=== PATIENT | male | born 1955 | race Caucasian/White ===

== ENCOUNTER 2024-06-05 12:54 | Inpatient (IN) | payer MEDICARE, OTHER, SELFPAY ==
[2024-06-05] VITALS (8 sets, daily range): BP systolic 98–122; BP diastolic 67–95; PULSE 112–136; RESP 16–20; TEMP 36.5–36.8; O2SAT 92–98; BMI 32.8
--- NOTE | 2024-06-05 12:56 | XRR_ITS ---
PROCEDURE INFORMATION: Exam: XR Chest Exam date and time: 06/05/2024 1:16 PM Age: 68 years old Clinical indication: Shortness of breath; Additional info: SOB TECHNIQUE: Imaging protocol: Radiologic exam of the chest. Views: 1 view. COMPARISON: No relevant prior studies available. FINDINGS: Lungs: Unremarkable. No consolidation. Pleural spaces: Unremarkable. No pleural effusion. No pneumothorax. Heart/Mediastinum: Mild cardiomegaly. Mild relative elevation of the left hemidiaphragm. Bones/joints: Unremarkable. XR/XR chest 1V portable [id number] IMPRESSION: Mild cardiomegaly.
--- NOTE | 2024-06-05 13:14 | ECG_ITS ---
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 Measurements Intervals [place] Rate: 130 P: 0 [place]: 0 QRS: 33 QRSD: 89 T: 61 QT: 312 QTc: 460 Interpretive Statements ATRIAL FIBRILLATION WITH RAPID VENTRICULAR RESPONSE No previous ECG available for comparison Electronically Signed On 06-09-2024 18:28:15 CDT by Hammad Martinez M.D. [id number]
--- NOTE | 2024-06-05 13:28 | W.ED.SOB ---
HPI - SOB/Dyspnea General: Chief Complaint: Shortness of Breath/Dyspnea Stated Complaint: Guzmán Juniata sent, fluid build up, A Fib Time Seen by Provider: 06/05/24 13:17 Source: patient Mode of arrival: ambulatory Limitations: no limitations History of Present Illness: HPI Narrative: 68-year-old male has a history of congestive heart failure also has a history of A-fib states he had recently moved here states he been having increasing swelling in his lower extremities along with some exertional dyspnea. He is having no dyspnea at rest he denies any chest pain he does take Lasix at home he also has a history of A-fib states is been taking his meds he is in A-fib with RVR here. Associated symptoms: Reports palpitations; Deny abdominal pain, chest pain, fever(s), nausea or vomiting Related Data Home Medications ?Medication ?Instructions ?Recorded ?Confirmed amoxicillin 500 mg-potassium 1 tab PO BID 06/05/24 06/05/24 clavulanate 125 mg tablet (Augmentin) apixaban 5 mg tablet (Eliquis) 5 mg PO BID 06/05/24 06/05/24 atorvastatin 40 mg tablet 40 mg PO DAILY 06/05/24 06/05/24 furosemide 40 mg tablet 40 mg PO BID 06/05/24 06/05/24 lisinopril 20 mg tablet 20 mg PO DAILY 06/05/24 06/05/24 metoprolol succinate 200 mg 200 mg PO DAILY 06/05/24 06/05/24 tablet,extended release 24 hr sildenafil 100 mg tablet 100 mg PO DAILY 06/05/24 06/05/24 tirzepatide 12.5 mg/0.5 mL 12.5 mg SUBCUT Q7D 06/05/24 06/05/24 subcutaneous pen injector (Mounjaro) Allergies Allergy/AdvReac Type Severity Reaction Status Date / Time No Known Allergies Allergy Verified 06/05/24 13:14 Review of Systems Const: Denies: fever(s), chills, body aches or change in appetite ENMT: Denies: throat pain or dental pain Card: Reports: palpitations and irregular heart rhythm; Denies: chest pain Resp: Reports: dyspnea GI: Denies: abdominal pain, nausea, vomiting or diarrhea Musc: Reports: extremity swelling; Denies: neck pain or back pain Skin/Breast: Denies: rash Neuro: Denies: headache(s) Physical Exam Const: COMMON NORMALS: patient oriented x3 HENMT: COMMON NORMALS: normocephalic and atraumatic HEAD & SCALP: normocephalic and atraumatic Eye: COMMON NORMALS: conjunctivae normal CONJUNCTIVA: Yes conjunctivae normal Neck/C-Spine: COMMON NORMALS: full ROM and supple Chest: COMMONS NORMALS: normal inspection of the chest Resp: COMMON NORMALS: normal respiratory effort, No retractions, No use of accessory muscles and clear to auscultation bilaterally AUSCULTATION: clear to auscultation bilaterally Cardio: COMMON NORMALS: No murmurs present (Cardio) RATE: tachycardic RHYTHM: abnormal rhythm irregularly irregular GI: COMMON NORMALS: Normal to inspection, nondistended, normoactive bowel sounds present, Soft to palpation, non-tender and no masses PALPATION: Yes Soft to palpation Extremity: COMMON NORMALS: full ROM NARRATIVE EXTREMITY EXAM: 2+ edema Neuro: COMMON NORMALS: patient oriented x3, moves all extremities and no focal motor deficits Psych: COMMON NORMALS: mental status grossly normal, Normal thought process present and cooperative THOUGHT PROCESS: Normal thought process present Skin: COMMON NORMALS: no rashes or lesions noted and no wounds GENERAL SKIN EXAM: no rashes or lesions noted Course Vital Signs: Vital signs: Vital Signs Temperature 97.7 F 06/05/24 13:07 Pulse Rate 131 H 06/05/24 14:39 Respiratory Rate 16 06/05/24 14:39 Blood Pressure 111/67 06/05/24 14:39 Pulse Oximetry 98 06/05/24 14:39 Oxygen Delivery Me thod Room Air 06/05/24 14:39 MDM - SOB/Dyspnea Medical Decision Making Patient presents here with lower extreme edema likely from his CHF he has no respiratory distress he is in A-fib with RVR here have started him on amiodarone spoke to the hospitalist will admit at this time. Medical Records I reviewed the patient's medical records. Lab Data I reviewed the patient's lab results. 06/05/24 13:26 06/05/24 13:26 Labs/Radiology: Radiology Impressions Chest X-Ray 06/05/24 12:56 IMPRESSION: Mild cardiomegaly. Laboratory Results WBC 6.71 10^3/uL (3.29-11.43) 06/05/24 13:26 RBC 5.48 10^6/uL (3.85-5.65) 06/05/24 13:26 Hgb 11.50 g/dL (11.27-16.99) 06/05/24 13:26 Hct 37.9 % (37-53) 06/05/24 13:26 MCV 69.2 fl (82-101) L 06/05/24 13:26 MCH 21.0 pg (27-33) L 06/05/24 13:26 MCHC 30.3 g/dL (30-55) 06/05/24 13:26 RDW 20.2 % (12.1-15.1) H 06/05/24 13:26 Plt Count 263 10^3/cmm (157-399) 06/05/24 13:26 MPV 9.7 fL (7.4-10.4) 06/05/24 13:26 Neut % (Auto) 70.5 % 06/05/24 13:26 Lymph % (Auto) 18.3 % 06/05/24 13:26 Shackelford % (Auto) 9.4 % 06/05/24 13:26 Eos % (Auto) 1.0 % 06/05/24 13:26 Baso % (Auto) 0.4 % 06/05/24 13:26 Neut # (Auto) 4.72 10^3/uL (1.8-7.7) 06/05/24 13:26 Lymph # (Auto) 1.2 10^3/uL (0.8-4.8) 06/05/24 13:26 Shackelford # (Auto) 0.6 10^3/uL (0.2-0.9) 06/05/24 13:26 Eos # (Auto) 0.1 10^3/uL (0.0-0.8) 06/05/24 13:26 Baso # (Auto) 0.0 10^3/uL (0.0-0.1) 06/05/24 13:26 Nucleated RBC % (auto) 0 % 06/05/24 13:26 Nucleated RBCs # 0.0 /100WBC 06/05/24 13:26 Sodium 137 mmol/L (136-145) 06/05/24 13:26 Potassium 4.0 mmol/L (3.5-5.1) 06/05/24 13:26 Chloride 100 mmol/L (98-107) 06/05/24 13:26 Carbon Dioxide 27 mmol/L (22-29) 06/05/24 13:26 Anion Gap 14.0 (5-19) 06/05/24 13:26 BUN 30 mg/dL (8-23) H 06/05/24 13:26 Creatinine 1.6 mg/dL (0.7-1.2) H 06/05/24 13:26 GFR Calculation 42.9 mL/min (90-130) L 06/05/24 13:26 Glucose 92 mg/dL (65-115) 06/05/24 13:26 Calculated Osmolality 290 mOsm/kg (285-295) 06/05/24 13:26 Calcium 8.8 mg/dL (8.5-10.5) 06/05/24 13:26 Total Bilirubin 2.0 mg/dL (0.15-1.2) H 06/05/24 13:26 AST 63 U/L (0-40) H 06/05/24 13:26 ALT 48 U/L (0-41) H 06/05/24 13:26 Alkaline Phosphatase 168 U/L (40-130) H 06/05/24 13:26 NT-Pro-B Natriuret Pep 5504 pg/mL (0-125) H 06/05/24 13:26 Total Protein 7.1 g/dL (6.6-8.7) 06/05/24 13:26 Albumin 3.8 g/dL (3.5-5.2) 06/05/24 13:26 Globulin 3.3 g/dL (1.3-4.6) 06/05/24 13:26 All radiology interpretation(s) finalized by discharge EKG Data EKG 1: I personally reviewed and interpreted this EKG as follows: EKG Interpretation Date: 06/05/24 EKG interpretation time: 13:14 Interpretation: afib rvr hr [address] elevtion qrs 89 qtc 389 Discharge Plan Discharge Patient Disposition: Admitted As Inpatient Clinical Impression: Congestive heart failure, Atrial fibrillation with RVR Condition: Stable Prescriptions: No Action furosemide 40 mg Tablet 40 mg PO BID atorvastatin 40 mg Tablet 40 mg PO DAILY metoprolol succinate 200 mg Tablet Extended Release 24 Hr 200 mg PO DAILY lisinopril 20 mg Tablet 20 mg PO DAILY sildenafil 100 mg Tablet 100 mg PO DAILY Eliquis 5 mg Tablet 5 mg PO BID Mounjaro 12.5 mg/0.5 mL Pen Injector 12.5 mg SUBCUT Q7D amoxicillin-pot clavulanate [Augmentin] 500-125 mg Tablet 1 tab PO BID Print Language: Ukrainian Coding Level of Care Code ED 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
[2024-06-05 13:36] LABS: Basophils % 0.4 %; Eosinophils # 0.1 10^3/uL (0.0-0.8); Hematocrit 37.9 % (37-53); Lymphocytes # 1.2 10^3/uL (0.8-4.8); Lymphocytes % 18.3 %; Mean Corpuscular HGB Conc 30.3 g/dL (30-55); Mean Corpuscular Volume 69.2 fl (82-101); Mean Platelet Volume 9.7 fL (7.4-10.4); Monocytes # 0.6 10^3/uL (0.2-0.9); Monocytes % 9.4 %; Neutrophils # 4.72 10^3/uL (1.8-7.7); Neutrophils % 70.5 %; Nucleated Red Blood Cells % 0 %; Platelet Count 263 10^3/cmm (157-399); Red Blood Count 5.48 10^6/uL (3.85-5.65); Red Cell Distribution Width 20.2 % (12.1-15.1); White Blood Count 6.71 10^3/uL (3.29-11.43)
[2024-06-05 14:06] LABS: Alanine Aminotransferase 48 U/L (0-41); Albumin Level 3.8 g/dL (3.5-5.2); Alkaline Phosphatase 168 U/L (40-130); Aspartate Amino Transferase 63 U/L (0-40); Blood Urea Nitrogen 30 mg/dL (8-23); Calcium 8.8 mg/dL (8.5-10.5); Carbon Dioxide 27 mmol/L (22-29); Chloride 100 mmol/L (98-107); Creatinine Clr Calc Pharmacy 54.9716; Globulin 3.3 g/dL (1.3-4.6); Glomerular Filtration Rate 42.9 mL/min (90-130); Glucose 92 mg/dL (65-115); NT Pro B Type Natriuretic Pept 5504 pg/mL (0-125); Osmolality Calculated 290 mOsm/kg (285-295); Sodium 137 mmol/L (136-145); Total Protein 7.1 g/dL (6.6-8.7)
[2024-06-05] MEDS: FUROsemide 10 mg/mL SDV 4mL 40 MG IVP ×2 (14:08→20:36)
[2024-06-05] MEDS: amiodarone 150 MG/100 ML PREMIX 400 MG IV (14:08)
--- NOTE | 2024-06-05 15:11 | USR_ITS ---
PROCEDURE INFORMATION: Exam: US Abdomen, Limited; Right Upper Quadrant Exam date and time: 06/05/2024 7:26 PM Age: 68 years old Clinical indication: Abnormal findings; Abnormal lab test; Elevated liver enzymes; Prior surgery; Surgery date: 6+ months; Surgery type: Cholecystectomy; Additional info: Transamintis TECHNIQUE: Imaging protocol: Real time ultrasound of the abdomen with image documentation. Limited exam focused on the right upper quadrant. COMPARISON: No relevant prior studies available. FINDINGS: Liver: Mild hepatomegaly. Gallbladder: Surgically absent. Biliary ducts: No stones. No ductal dilatation. Pancreas: Unremarkable as visualized. Right kidney: No mass. No definite stones. No hydronephrosis. US/US liver [id number] IMPRESSION: Mild hepatomegaly.
--- NOTE | 2024-06-05 15:19 | P.HP_ITS ---
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 Patient tells me that he is originally from [facility] [place], he has been a lot of stress recently, he just sold his house in [place] [facility] [place], and it is under contract, but they are having issues, [place], so he he has to be to mortgages, him and his have moved here, he tells me that recently has been experiencing increased shortness of breath, increased shortness of breath with exertion, increased lower extreme edema, chest palpitations, no chest pain, he was diagnosed with a respiratory tract infection and placed on Augmentin, denies alcoholism, denies any drug use Review of Systems 2 Const: Denies: fever(s) or chills Card: Reports: palpitations; Denies: chest pain Resp: Reports: dyspnea GI: Denies: abdominal pain Medications/Allergies Home Medications ?Medication ?Instructions ?Recorded ?Confirmed ?Last Taken ?Type amoxicillin 500 mg-potassium 1 tab PO BID 06/05/2403/3106/05/24 History clavulanate 125 mg tablet (Augmentin) apixaban 5 mg tablet (Eliquis) 5 mg PO BID 06/05/2406/05/24 History atorvastatin 40 mg tablet 40 mg PO DAILY 06/05/2403/3106/05/24 History furosemide 40 mg tablet 40 mg PO BID 06/05/2406/05/24 History lisinopril 20 mg tablet 20 mg PO DAILY 06/05/2403/3106/05/24 History metoprolol succinate 200 mg 200 mg PO DAILY 06/05/24 0 06/05/24 06/05/24 History tablet,extended release 24 hr sildenafil 100 mg tablet 100 mg PO DAILY 06/05/2403/31 Unknown History tirzepatide 12.5 mg/0.5 mL 12.5 mg SUBCUT Q7D 06/05/24 06/05/24 Unknown History subcutaneous pen injector (Nga) Allergies Allergy/AdvReac Type Severity Reaction Status Date / Time No Known Allergies Allergy Verified 06/05/24 13:14 PFSH Acute 2 PFSH: Medical History (Updated 06/05/24 @ 15:44 by Abdiel Bishop MD) History of cardioversion History of CAD (coronary artery disease) History of atrial fibrillation Surgical History (Updated 06/05/24 @ 15:42 by Abdiel Bishop MD) History of heart artery stent History of cholecystectomy Family History (Updated 06/05/24 @ 15:43 by Abdiel Bishop MD) Mother CAD (coronary artery disease) Father CAD (coronary artery disease) Social History (Updated 06/05/24 @ 15:43 by Abdiel Bishop MD) Smoking and tobacco/nicotine status: never used tobacco/nicotine Alcohol intake: never Substance/Drug Use: never Vitals/I&O/Wt Last Vital Signs Temp 97.7 F 06/05/24 13:07 Pulse 115 H 06/05/24 15:18 Resp 16 06/05/24 15:18 BP 111/67 06/05/24 15:18 Pulse Ox 96 06/05/24 15:18 O2 Del Method Room Air 06/05/24 15:00 06/05/24 06/05/24 06/05/24 06:59 14:59 22:59 Intake Total 100 / 100 Balance 100 / 100 Weight last 48 hrs Weight 109.769 kg Physical Exam 2 Const: COMMON NORMALS: no acute distress and patient oriented x3 HENMT: COMMON NORMALS: normocephalic HEAD & SCALP: normocephalic Eye: COMMON NORMALS: Equal, round and reactive pupils present Neck/C-Spine: COMMON NORMALS: no JVD Resp: COMMON NORMALS: normal respiratory effort, No retractions, No use of accessory muscles and clear to auscultation bilaterally AUSCULTATION: c rackles and wheezes Cardio: COMMON NORMALS: no JVD, regular rate, regular rhythm, S1 normal heart sound present and S2 normal heart sound present RATE: regular rate RHYTHM: regular rhythm HEART SOUNDS: S1 normal heart sound present and S2 normal heart sound present GI: COMMON NORMALS: Normal to inspection, nondistended, normoactive bowel sounds present, Soft to palpation and non-tender : COMMON NORMALS: Yes no CVA tenderness Extremity: OTHER: 2+ edema Neuro: COMMON NORMALS: patient oriented x3, CN's II-XII intact bilaterally and moves all extremities Psych: COMMON NORMALS: mental status grossly normal Data 06/05/24 13:26 06/05/24 13:26 A&P Assessment and plan (1) Atrial fibrillation with RVR: (2) Acute exacerbation of CHF (congestive heart failure): (3) Transaminitis: (4) Acute kidney injury: Plan Acute systolic and diastolic CHF exacerbation Plan -Cardiac echo -Has received 40 mg of IV Lasix in the emergency room, add metolazone 5 mg daily -Lasix 40 IV twice daily -Monitor creatinine, monitor urine output, monitor potassium -Magnesium level, TSH -Monitor respiratory status closely Atrial fibrillation with rapid ventricular response -Continue home metoprolol -Continue amiodarone drip Transaminitis -With elevated bilirubin, alk phos -Alcohol level, acute hep panel, liver ultrasound Prediabetes, A1c Acute kidney injury, creatinine 1.6, baseline creatinine unknown, possibly cardiorenal syndrome monitor creatinine and urine output given diuresis Full code Eliquis for DVT prophylaxis PDMP PDMP Reviewed: Not Reviewed Attestations 2 Medical Necessity Statement*: Patient requires hospitalization, inpatient, greater than 2 midnights for acute systolic diastolic CHF exacerbation, atrial fibrillation with rapid ventricular response, transaminitis Diagnoses Atrial fibrillation with RVR I48.91 Acute exacerbation of CHF (congestive heart failure) I50.9 Transaminitis R74.01 Acute kidney injury N17.9
--- NOTE | 2024-06-05 15:43 | PC.NURSE ---
Patient transferred from ED to CSU via bed with amio drip running at 1mg/min at 1532.
[2024-06-05 15:46] LABS: Troponin 5 2HR 26.31 ng/L (0-15)
--- NOTE | 2024-06-05 16:01 | ECG_ITS ---
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 Measurements Intervals [place] Rate: 131 P: 0 [place]: 0 QRS: 52 QRSD: 88 T: 29 QT: 333 QTc: 492 Interpretive Statements ATRIAL FIBRILLATION WITH RAPID VENTRICULAR RESPONSE NONSPECIFIC T-WAVE ABNORMALITY ABNORMAL RHYTHM ECG Compared to ECG 06/05/2024 13:14:14 T-wave abnormality now present Electronically Signed On 06-09-2024 18:27:10 CDT by Hammad Martinez M.D. [id number]
[2024-06-05 16:06] LABS: Thyroid Stimulating Hormone 1.97 uIU/mL (0.27-4.20)
[2024-06-05 16:17] LABS: Estmated Average Glucose 134; Hemoglobin A1C 6.3 % (4.0-6.0)
[2024-06-05 16:25] LABS: Amphetamines Screen Urine Negative (Negative); Bacteria Urine None Seen /hpf; Barbiturates Screen Urine Negative (Negative); Benzodiazepines Screen Urine Negative (Negative); Cocaine Screen Urine Negative (Negative); Hyaline Casts Urine 27.69 /lpf; Opiate Screen Urine Negative (Negative); PCP Screen Urine Negative (Negative); RBC Urine 0-2 /hpf (0-2); THC Screen Urine Negative (Negative); WBC Urine 0-5 /hpf (0-5)
[2024-06-05 16:29] LABS: Troponin(5th) Baseline 30 ng/L (0-15)
[2024-06-05 16:31] LABS: Troponin 5 2HR Delta -3.69 ABS# (0-10)
[2024-06-05] MEDS: metOLazone 5 MG Tablet PO (16:43)
[2024-06-05] MEDS: pantoprazole 40 mg SDV IVP (16:43)
[2024-06-05 16:59] LABS: C Reactive Protein 22.7 mg/L (0.0-4.9); Chol HDL Ratio 3.33 mg/dL (1.0-5.00); Cholesterol 80 mg/dL (0-200); Gamma Glutamyl Transferase 152 U/L (8-61); HDL Cholesterol 24 mg/dL (60-100); LDL Cholesterol Calculated 41 mg/dL (50-129); LDL HDL Ratio 1.71 RATIO (0.00-3.22); Lipase 48 U/L (13-60); Magnesium 2.4 mg/dL (1.7-2.3); Procalcitonin 0.11 ng/mL (0-0.5); Triglycerides 74 mg/dL (0-150)
[2024-06-05 17:00] LABS: Alcohol Level < 10 mg/dL (0-10)
[2024-06-05 17:07] LABS: Add Urine Microscopic? YES; Bilirubin Urine Neg (Negative); Blood Urine Trace (Negative); Glucose Urine UA Norm (Normal); Ketones Urine Negative (Negative); Leukocyte Esterase Urine Negative (Negative); Nitrate Urine Negative (Negative); Protein Urine 1+ (Negative); Specific Gravity, Urine 1.015 (1.005-1.030); UA Slide Review UA Slide Review Perf; Urine Appearance Clear (CLEAR); Urine Color Yellow (Yellow); Urobilinogen Urine 1 mg/dL (Negative); pH Urine 5 (5-7)
[2024-06-05 17:10] LABS: Hepatitis A Antibody IgM Non-Reactive (Nonreactive); Hepatitis B Core IgM Non-Reactive (Nonreactive); Hepatitis B Surface Antigen Non-Reactive (Nonreactive); Hepatitis C Virus Antibody Non-Reactive (Nonreactive)
[2024-06-05] MEDS: amoxicillin-clav 500-125 mg Tablet 1 TAB PO (17:19)
[2024-06-05] MEDS: apixaban 5 mg Tablet PO (17:20)
[2024-06-05 20:15] LABS: Troponin 5 6HR 27.37 ng/L (0-15)
[2024-06-05 20:20] LABS: Troponin 5 6HR Delta -2.63 ng/L (0-12)
--- NOTE | 2024-06-05 21:12 | ECG_ITS ---
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: : 1955 Requested By: Abdiel Bishop Order Number: [id number] Reading MD: GALILEO MORA Measurements Intervals [place] Rate: 137 P: 0 [place]: 0 QRS: 70 QRSD: 92 T: 40 QT: 313 QTc: 473 Interpretive Statements ATRIAL FIBRILLATION WITH RAPID VENTRICULAR RESPONSE INCOMPLETE RIGHT BUNDLE BRANCH BLOCK [90+ ms QRS DURATION, TERMINAL R IN V1/V2, 40+ ms S IN I/aVL/V4/V5/V6] ABNORMAL RHYTHM ECG Compared to ECG 06/05/2024 16:01:58 Incomplete right bundle-branch block now present T-wave abnormality no longer present Electronically Signed On 06-10-2024 21:52:56 CDT by GALILEO MORA [id number]
[2024-06-05] MEDS: trazodone 50 mg Tablet PO (23:25)
[2024-06-05] MEDS: acetaminophen 325 mg Tablet 650 MG PO (23:26)
[2024-06-06 04:00] VITALS: BP 117/68; PULSE 131; RESP 19; TEMP 36.8; O2SAT 98
[2024-06-06 04:09] LABS: Basophils % 0.4 %; Eosinophils # 0.1 10^3/uL (0.0-0.8); Eosinophils % 2.3 %; Hematocrit 34.3 % (37-53); Lymphocytes # 1.1 10^3/uL (0.8-4.8); Lymphocytes % 21.7 %; Mean Corpuscular HGB Conc 30.6 g/dL (30-55); Mean Corpuscular Hemoglobin 20.9 pg (27-33); Mean Corpuscular Volume 68.3 fl (82-101); Mean Platelet Volume 10.2 fL (7.4-10.4); Monocytes # 0.5 10^3/uL (0.2-0.9); Monocytes % 8.9 %; Neutrophils % 66.1 %; Nucleated Red Blood Cells % 0 %; Platelet Count 229 10^3/cmm (157-399); Red Blood Count 5.02 10^6/uL (3.85-5.65); Red Cell Distribution Width 19.9 % (12.1-15.1); White Blood Count 5.15 10^3/uL (3.29-11.43)
[2024-06-06 04:44] LABS: Alanine Aminotransferase 40 U/L (0-41); Albumin Level 3.4 g/dL (3.5-5.2); Alkaline Phosphatase 155 U/L (40-130); Anion Gap 14.7 (5-19); Aspartate Amino Transferase 52 U/L (0-40); Blood Urea Nitrogen 30 mg/dL (8-23); Calcium 8.6 mg/dL (8.5-10.5); Carbon Dioxide 27 mmol/L (22-29); Chloride 99 mmol/L (98-107); Creatinine Clr Calc Pharmacy 56.9562; Globulin 2.9 g/dL (1.3-4.6); Glomerular Filtration Rate 42.9 mL/min (90-130); Glucose 100 mg/dL (65-115); Magnesium 2.2 mg/dL (1.7-2.3); Osmolality Calculated 290 mOsm/kg (285-295); Potassium 3.7 mmol/L (3.5-5.1); Sodium 137 mmol/L (136-145); Total Bilirubin 1.6 mg/dL (0.15-1.2); Total Protein 6.3 g/dL (6.6-8.7)
[2024-06-06 04:45] LABS: NT Pro B Type Natriuretic Pept 4997 pg/mL (0-125)
[2024-06-06 08:00] VITALS: BP 111/87; PULSE 123; RESP 20; TEMP 36.7; O2SAT 95
[2024-06-06] MEDS: atorvastatin 40 mg Tablet PO (08:57)
[2024-06-06] MEDS: apixaban 5 mg Tablet PO ×2 (08:57→17:26)
[2024-06-06] MEDS: FUROsemide 10 mg/mL SDV 4mL 40 MG IVP ×2 (08:57→20:20)
[2024-06-06] MEDS: metoprolol succinate ER (24 HR) 100 mg Tablet 200 MG PO (08:57)
[2024-06-06] MEDS: amoxicillin-clav 500-125 mg Tablet 1 TAB PO ×2 (08:58→17:26)
--- NOTE | 2024-06-06 10:04 | PC.NURSE ---
Provider ordered nursing to run a amiodarone bolus 150mg now. Order entered.
[2024-06-06] MEDS: amiodarone 150 MG/100 ML PREMIX 400 MG IV (10:10)
[2024-06-06 10:35] VITALS: BP 107/73; PULSE 120
[2024-06-06] MEDS: ALPRAZolam 0.5 mg Tablet 0.25 MG PO ×2 (11:05→20:20)
[2024-06-06] MEDS: fluoxetine 10 mg Capsule 20 MG PO (11:06)
[2024-06-06 11:25] VITALS: BP 117/79; PULSE 115; RESP 20; TEMP 36.9; O2SAT 97
--- NOTE | 2024-06-06 11:27 | P.CONIM_ITS ---
<Statement entered by Hammad Martinez M.D - 06/07/24 12:50> Patient was evaluated and cared for in conjunction with an advanced practice practitioner.? I personally examined the patient and reviewed the chart and all pertinent data including imaging, telemetry, and laboratory results.? I discussed the patient in detail with the advanced practice practitioner.? Please see? their note for complete H&P, testing results and agreed upon plan of care for the patient. Patient's heart rate is still uncontrolled. Continue metoprolol and amiodarone. If heart rate does not improve in 1 to 2 days, will consider cardioversion. GENERAL: Patient is alert, awake and oriented x3. HEART Irregularly irregular, tachycardia LUNGS: Diminished air entry bilaterally CENTRAL NERVOUS SYSTEM: Grossly nonfocal. EXTREMITIES: Lower extremities with out edema bilaterally. Providers/Reason For Consult 2 Consulting Physician/Specialty*: Dr. Martinez Reason for Consult*: Afib RVR Requesting Physician: Dr. 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 He recently moved in this area. He presented to [facility] ER for what he states is lower extremity edema. He denied any palpitations at that time. Denied any dizziness shortness of breath or chest pain. On my exam he does have quite a bit of wheezing. He states he was diagnosed with a respiratory tract infection and placed on Augmentin recently. He also has acute kidney injury with creatinine of 1.6. He states he is not aware of any kidney dysfunction that he knows of. Troponins were slightly elevated at 30?26.31?27.37 with delta negative. EKG shows A-fib with RVR. Rates are currently anywhere from 120s to upper 130s. He is asymptomatic at this time. Echo has been ordered but not done. Currently he is on amiodarone drip as well as metoprolol 200 mg daily and Eliquis 5 twice daily for stroke prevention as well as Lasix 40 every 12. Review of Systems 2 Narrative: Consitutional: denies fever, chills, body aches, or changes in appetite, denies abnormal weight loss Eyes: Denies changes in vision Card: Denies chest pain, palpitations, irregular heart rhythm, reports edema, denies syncope, shortness of breath, orthopnea, leg pain with exertion Resp: Denies shortness of breath, denies hemoptysis, denies cough GI: denies abdominal pain, denies nausea or voimting, denies blood in stool : denies blood in urine, denies dysuria Musc: Denies extremity pain, denies limited range of motion or recent injury Skin: Reports swelling bilateral lower extremities Neuro: Denies nubmness in extremities, h/a, s/s of stroke Maksim: Denies easy bruiding/bleeding Medications/Allergies Home Medications ?Medication ?Instructions ?Recorded ?Confirmed ?Last Taken ?Type amoxicillin 500 mg-potassium 1 tab PO BID 06/05/2403/3106/05/24 History clavulanate 125 mg tablet (Augmentin) apixaban 5 mg tablet (Eliquis) 5 mg PO BID 06/05/2406/05/24 History atorvastatin 40 mg tablet 40 mg PO DAILY 06/05/2403/3106/05/24 History furosemide 40 mg tablet 40 mg PO BID 06/05/2406/05/24 History lisinopril 20 mg tablet 20 mg PO DAILY 06/05/2403/3106/05/24 History metoprolol succinate 200 mg 200 mg PO DAILY 06/05/24 0 06/05/24 06/05/24 History tablet,extended release 24 hr sildenafil 100 mg tablet 100 mg PO DAILY 06/05/2403/31 Unknown History tirzepatide 12.5 mg/0.5 mL 12.5 mg SUBCUT Q7D 06/05/24 06/05/24 Unknown History subcutaneous pen injector (Mounjaro) Allergies Allergy/AdvReac Type Severity Reaction Status Date / Time No Known Allergies Allergy Verified 06/05/24 13:14 Current Medications Generic Name Dose Route Start Last Admin Trade Name Freq PRN Reason Stop Dose Admin Acetaminophen 650 mg 06/05/24 15:41 06/05/24 23:26 Acetaminophen 325 Mg Tablet PO 650 mg Q6H PRN Administration Mild/Mod Pain Or Temp >/= 101 Alprazolam 0.25 mg 06/06/24 10:24 06/06/24 11:05 Alprazolam 0.5 Mg Tablet PO 0.25 mg TID PRN Administration ANXIETY Amoxicillin/Clavulanate Potassium 1 tab 06/05/24 18:00 06/06/24 08:58 Amoxicillin-Clav 500-125 Mg Tablet PO 1 tab BID JAMES Administration Protocol Apixaban 5 mg 06/05/24 18:00 06/06/24 08:57 Apixaban 5 Mg Tablet PO 5 mg BID JAMES Administration Atorvastatin Calcium 40 mg 06/06/24 09:00 06/06/24 08:57 Atorvastatin 40 Mg Tablet PO 40 mg DAILY JAMES Administration Fluoxetine HCl 20 mg 06/06/24 10:25 06/06/24 11:06 Fluoxetine 10 Mg Capsule PO 20 mg DAILY JAMES Administration Furosemide 40 mg 06/05/24 20:00 06/06/24 08:57 Furosemide 10 Mg/Ml Sdv 4ml IVP 40 mg Q12H JAMES Administration Amiodarone HCl/Dextrose 360 mg in 200 mls @ 0 mls/hr 06/05/24 13:31 06/06/24 10:35 Nexterone IV 0.5 mg/min .Q0M JAMES 16.67 mls/hr Titration Protocol Per Protocol Melatonin 9 mg 06/05/24 22:45 06/06/24 01:37 Melatonin 3 Mg Tablet PO Not Given BEDTIME JAMES Metoprolol Succinate 200 mg 06/06/24 09:00 06/06/24 08:57 Metoprolol Succinate Er (24 Hr) 100 Mg Tablet PO 200 mg DAILY JAMES Administration Pantoprazole Sodium 40 mg 06/05/24 15:41 06/05/24 16:43 Pantoprazole 40 Mg Sdv IVP 40 mg Q24H JAMES Administration Trazodone HCl 50 mg 06/05/24 22:25 06/05/24 23:25 Trazodone 50 Mg Tablet PO 50 mg BEDTIME PRN Administration INSOMNIA PFSH Acute 2 PFSH: Medical History (Updated 06/05/24 @ 15:44 by Abdiel Bishop MD) History of cardioversion History of CAD (coronary artery disease) History of atrial fibrillation Surgical History (Updated 06/05/24 @ 15:42 by Abdiel Bishop MD) History of heart artery stent History of cholecystectomy Family History (Updated 06/05/24 @ 15:43 by Abdiel Bishop MD) Mother CAD (coronary artery disease) Father CAD (coronary artery disease) Social History (Updated 06/05/24 @ 15:43 by Abdiel Bishop MD) Smoking and tobacco/nicotine status: never used tobacco/nicotine Alcohol intake: never Substance/Drug Use: never Vitals/I&O/Wt Last Vital Signs Temp 98.4 F 06/06/24 11:25 Pulse 115 H 06/06/24 11:25 Resp 20 H 06/06/24 11:25 BP 117/79 06/06/24 11:25 Pulse Ox 97 06/06/24 11:25 O2 Del Method Room Air 06/06/24 11:25 06/05/24 06/06/24 06/06/24 22:59 06:59 14:59 Intake Total 740 / 840 200 / 1040 777.262 / 777.262 Balance 740 / 840 200 / 1040 777.262 / 777.262 Weight last 48 hrs Weight 255 lb 8 oz Weight 260 lb Weight 242 lb Physical Exam 2 Narrative: General: No apparent distress, healthy appearing, well nourished HENMT: normoceophalic Neck: No carotid bruit bilaterally Muskuloskeletal: Full ROM Respiratory: Normal respiratory effort, inspiratory wheezes throughout all lung wahl, no use of accessory muscles Cardio: No JVD, irregularly irregular rate and rhythm, S1 S2 normal, no murmurs, peripheral pulses 2+ radial palpated bilaterally GI: Normal to inspection, nondistended Extremities: Full ROM, normal, normal capillary refill, 2+ pitting edema bilateral lower extremity Neuro: Alert and oriented x4, no focal motor deficits Psych: Affect normal, denies suicidal ideation, mental status grossly normal Skin: No rashes or lesions noted, no wounds Data 06/06/24 03:43 06/06/24 03:43 A&P Assessment and plan (1) Atrial fibrillation with RVR: (2) Acute exacerbation of CHF (congestive heart failure): (3) Transaminitis: (4) Acute kidney injury: Plan Due to patient's DINO, we are limited in some of the medications that we can use. At this time he is currently maxed out on metoprolol as well as on amiodarone drip. He does have slight elevated liver functions so we will need to carefully monitor his liver functions on the amiodarone. I did discuss with the patient that he may require cardioversion. At this time he has refused. He states he is going to go home. I educated him that he does have signs of heart failure and that this could worsen causing potential respiratory distress as well as . He does understand this. He does not want to get any kind of cardioversion. We will continue to monitor patient on current regimen. Further recommendations to be made after echo. Thank you, Dr. Bishop, for allowing us to care for this 68 year old gentleman. PDMP PDMP Reviewed: Not Reviewed Coding Level of Care Code Acute Code for [facility] Fwd Diagnoses Atrial fibrillation with RVR I48.91 Acute exacerbation of CHF (congestive heart failure) I50.9 Transaminitis R74.01 Acute kidney injury N17.9
--- NOTE | 2024-06-06 15:15 | P.PN_ITS ---
Subjective 2 Subjective: Patient was seen this morning, remains in atrial fibrillation, with rapid ventricular spots, heart rates up to the 140s, on amiodarone drip, we discussed cardioversion however patient declines cardioversion, he also is very anxious, we discussed trying Xanax for anxiety Vitals/I&O/Wt Last Vital Signs Temp 98.4 F 06/06/24 11:25 Pulse 115 H 06/06/24 11:25 Resp 20 H 06/06/24 11:25 BP 117/79 06/06/24 11:25 Pulse Ox 97 06/06/24 11:25 O2 Del Method Room Air 06/06/24 11:25 06/06/24 06/06/24 06/06/24 06:59 14:59 22:59 Intake Total 200 / 1040 897.262 / 897.262 Balance 200 / 1040 897.262 / 897.262 Weight last 48 hrs Weight 115.893 kg Weight 117.934 kg Weight 109.769 kg Physical Exam 2 Const: COMMON NORMALS: no acute distress and patient oriented x3 Resp: COMMON NORMALS: normal respiratory effort, No retractions and No use of accessory muscles AUSCULTATION: crackles and wheezes Cardio: COMMON NORMALS: regular rate, regular rhythm, S1 normal heart sound present and S2 normal heart sound present RATE: regular rate RHYTHM: r egular rhythm HEART SOUNDS: S1 normal heart sound present and S2 normal heart sound present GI: COMMON NORMALS: Normal to inspection, nondistended, normoactive bowel sounds present and non-tender Extremity: NARRATIVE EXTREMITY EXAM: 2+ pitting edema, anasarca, wheezing and crackles in all lung wahl Neuro: COMMON NORMALS: patient oriented x3 Psych: COMMON NORMALS: mental status grossly normal Data 06/06/24 03:43 06/06/24 03:43 A&P Assessment and plan (1) Atrial fibrillation with RVR: (2) Acute exacerbation of CHF (congestive heart failure): (3) Transaminitis: (4) Acute kidney injury: Plan Acute systolic and diastolic CHF exacerbation Plan -Cardiac echo -Has received 40 mg of IV Lasix in the emergency room, add metolazone 5 mg daily -Lasix 40 IV twice daily -Monitor creatinine, monitor urine output, monitor potassium -Magnesium level, TSH within normal limits -Monitor respiratory status closely Atrial fibrillation with rapid ventricular response -Continue home metoprolol -Continue amiodarone drip Transaminitis -With elevated bilirubin, alk phos -Alcohol level, acute hep panel, liver ultrasound Prediabetes, A1c 6.3 Acute kidney injury, creatinine 1.6, baseline creatinine unknown, possibly cardiorenal syndrome monitor creatinine and urine output given diuresis Full code Eliquis for DVT prophylaxis Plan for today continue amiodarone drip, spoke to cardiology, will consult, continue IV diuresis PDMP PDMP Reviewed: Not Reviewed Attestations 2 Medical Necessity Statement*: Patient requires hospitalization for acute systolic CHF exacerbation, atrial fibrillation with rapid ventricle response, acute kidney injury Diagnoses Atrial fibrillation with RVR I48.91 Acute exacerbation of CHF (congestive heart failure) I50.9 Transaminitis R74.01 Acute kidney injury N17.9
[2024-06-06 16:00] VITALS: BP 119/88; PULSE 114; RESP 24; TEMP 36.7; O2SAT 90
[2024-06-06] MEDS: pantoprazole 40 mg SDV IVP (17:26)
[2024-06-06 19:41] VITALS: BP 120/87; PULSE 115; RESP 16; TEMP 36.7; O2SAT 98
[2024-06-06] MEDS: MELATONIN 3 MG TABLET 9 MG PO (20:20)
[2024-06-07] VITALS: BP 114/75; PULSE 121; RESP 15; TEMP 36.8; O2SAT 92
[2024-06-07 03:16] LABS: Basophils % 0.3 %; Eosinophils # 0.1 10^3/uL (0.0-0.8); Eosinophils % 1.8 %; Hematocrit 36.4 % (37-53); Lymphocytes # 1.1 10^3/uL (0.8-4.8); Lymphocytes % 17.7 %; Mean Corpuscular HGB Conc 29.7 g/dL (30-55); Mean Corpuscular Hemoglobin 20.3 pg (27-33); Mean Corpuscular Volume 68.3 fl (82-101); Mean Platelet Volume 10.3 fL (7.4-10.4); Monocytes # 0.5 10^3/uL (0.2-0.9); Monocytes % 8.2 %; Neutrophils # 4.36 10^3/uL (1.8-7.7); Neutrophils % 71.7 %; Nucleated Red Blood Cells % 0 %; Platelet Count 256 10^3/cmm (157-399); Red Blood Count 5.33 10^6/uL (3.85-5.65); Red Cell Distribution Width 19.9 % (12.1-15.1); White Blood Count 6.09 10^3/uL (3.29-11.43)
[2024-06-07 03:41] LABS: Alanine Aminotransferase 40 U/L (0-41); Albumin Level 3.7 g/dL (3.5-5.2); Alkaline Phosphatase 179 U/L (40-130); Anion Gap 12.5 (5-19); Aspartate Amino Transferase 45 U/L (0-40); Blood Urea Nitrogen 30 mg/dL (8-23); Calcium 8.5 mg/dL (8.5-10.5); Carbon Dioxide 31 mmol/L (22-29); Chloride 98 mmol/L (98-107); Creatinine Clr Calc Pharmacy 56.4601; Glomerular Filtration Rate 42.9 mL/min (90-130); Glucose 104 mg/dL (65-115); Magnesium 2.2 mg/dL (1.7-2.3); Osmolality Calculated 292 mOsm/kg (285-295); Phosphorus 3.4 mg/dL (2.5-4.5); Potassium 3.5 mmol/L (3.5-5.1); Sodium 138 mmol/L (136-145); Total Bilirubin 1.5 mg/dL (0.15-1.2); Total Protein 6.7 g/dL (6.6-8.7)
[2024-06-07 04:00] VITALS: BP 137/94; PULSE 112; RESP 19; TEMP 36.8; O2SAT 98
[2024-06-07 07:53] VITALS: BP 121/91; PULSE 116; RESP 26; TEMP 36.7; O2SAT 97
[2024-06-07] MEDS: amoxicillin-clav 500-125 mg Tablet 1 TAB PO ×2 (08:57→17:01)
[2024-06-07] MEDS: metoprolol succinate ER (24 HR) 100 mg Tablet 200 MG PO (08:57)
[2024-06-07] MEDS: fluoxetine 10 mg Capsule 20 MG PO (08:57)
[2024-06-07] MEDS: FUROsemide 10 mg/mL SDV 4mL 40 MG IVP ×2 (08:57→16:09)
[2024-06-07] MEDS: apixaban 5 mg Tablet PO ×2 (08:58→17:01)
[2024-06-07] MEDS: atorvastatin 40 mg Tablet PO (08:58)
--- NOTE | 2024-06-07 09:12 | PC.NURSE ---
Order is verified by provider on Mr Cook, He has lasix and metolazone both on his MAR this morning. Do you want them both? Provider said yes both.
[2024-06-07] MEDS: metOLazone 5 MG Tablet PO ×2 (09:25→17:01)
[2024-06-07 12:00] VITALS: BP 97/62; PULSE 111; RESP 20; TEMP 36.6; O2SAT 97
[2024-06-07] MEDS: potassium chloride ER 20 mEq Tablet 40 MEQ PO (12:23)
--- NOTE | 2024-06-07 13:10 | P.PN_ITS ---
<Statement entered by Hammad Martinez M.D - 06/08/24 12:43> Patient was cared for in conjunction with an advanced practice practitioner.? I reviewed the chart and all pertinent data including imaging, telemetry, and laboratory results.? I discussed the patient in detail with the advanced practice practitioner.? Please see? their note for progress note, testing results and agreed upon plan of care for the patient. Subjective 2 Subjective: Patient still in A-fib RVR. Asymptomatic at this time. Kidney function is still about the same Vitals/I&O/Wt Last Vital Signs Temp 97.8 F 06/07/24 12:00 Pulse 111 H 06/07/24 12:00 Resp 20 H 06/07/24 12:00 BP 97/62 06/07/24 12:00 Pulse Ox 97 06/07/24 12:00 O2 Del Method Room Air 06/07/24 04:00 06/06/24 06/07/24 06/07/24 22:59 06:59 14:59 Intake Total 850 / 1750.000 200 / 4982.721 7964 / 1040 Output Total 1300 / 1300 Balance 850 / 1750.000 200 / 1950.000 -260 / -260 Weight last 48 hrs Weight 254 lb 11.2 oz Weight 255 lb 8 oz Weight 260 lb Physical Exam 2 Narrative: General: No apparent distress, healthy appearing, well nourished HENMT: normoceophalic Neck: No carotid bruit bilaterally Muskuloskeletal: Full ROM Respiratory: Normal respiratory effort, inspiratory wheezes throughout all lung wahl, no use of accessory muscles Cardio: No JVD, irregularly irregular rate and rhythm, S1 S2 normal, no murmurs, peripheral pulses 2+ radial palpated bilaterally GI: Normal to inspection, nondistended Extremities: Full ROM, normal, normal capillary refill, 2+ pitting edema bilateral lower extremity Neuro: Alert and oriented x4, no focal motor deficits Psych: Affect normal, denies suicidal ideation, mental status grossly normal Skin: No rashes or lesions noted, no wounds Data 06/07/24 02:50 06/07/24 02:50 A&P Assessment and plan (1) Atrial fibrillation with RVR: (2) Acute exacerbation of CHF (congestive heart failure): (3) Transaminitis: (4) Acute kidney injury: Plan I discussed with the patient that at this time the medications were not doing a good job or rate control but we can add Cardizem 30 mg twice daily and pay close attention to blood pressure. Creatinine still elevated so digoxin is not an option. Liver functions are stable we will continue to monitor. At this time patient has agreed to cardioversion with a PRABHJOT. We will plan on trying to get this done tomorrow around 1230. PDMP PDMP Reviewed: Not Reviewed Attestations 2 Medical Necessity Statement*: Deferred to primary Coding Level of Care Code Acute Code for [facility] Fwd Diagnoses Atrial fibrillation with RVR I48.91 Acute exacerbation of CHF (congestive heart failure) I50.9 Transaminitis R74.01 Acute kidney injury N17.9
--- NOTE | 2024-06-07 13:44 | P.PN_ITS ---
Subjective 2 Subjective: Patient was seen this morning, he is alert oriented x 3, following all commands, denies any fevers, chills, no cough continues to have tachycardia A-fib with RVR heart rates in the 130s, plan on cardioversion, plan hide continue to diurese patient as acute does have lower extremity edema Vitals/I&O/Wt Last Vital Signs Temp 97.8 F 06/07/24 12:00 Pulse 111 H 06/07/24 12:00 Resp 20 H 06/07/24 12:00 BP 97/62 06/07/24 12:00 Pulse Ox 97 06/07/24 12:00 O2 Del Method Room Air 06/07/24 04:00 06/06/24 06/07/24 06/07/24 22:59 06:59 14:59 Intake Total 850 / 1750.000 200 / 7895.936 7264 / 1040 Output Total 1300 / 1300 Balance 850 / 1750.000 200 / 1950.000 -260 / -260 Weight last 48 hrs Weight 115.53 kg Weight 115.893 kg Weight 117.934 kg Physical Exam 2 Const: COMMON NORMALS: no acute distress and patient oriented x3 Resp: COMMON NORMALS: normal respiratory effort, No retractions and No use of accessory muscles AUSCULTATION: crackles and wheezes Cardio: COMMON NORMALS: regular rate, regular rhythm, S1 normal heart sound present and S2 normal heart sound present RATE: regular rate RHYTHM: r egular rhythm HEART SOUNDS: S1 normal heart sound present and S2 normal heart sound present GI: COMMON NORMALS: Normal to inspection, nondistended, normoactive bowel sounds present and non-tender Extremity: NARRATIVE EXTREMITY EXAM: 3+ pitting edema, anasarca Neuro: COMMON NORMALS: patient oriented x3 Psych: COMMON NORMALS: mental status grossly normal Data 06/07/24 02:50 06/07/24 02:50 A&P Assessment and plan (1) Atrial fibrillation with RVR: (2) Acute exacerbation of CHF (congestive heart failure): (3) Transaminitis: (4) Acute kidney injury: Plan Acute systolic and diastolic CHF exacerbation Plan -Cardiac echo pending -Urine output, has been lackluster, continues to have 3+ pitting edema, anasarca, shortness of breath, crackles -2 doses of metolazone 5 mg twice daily with Lasix 40 IV every 8 hours -Monitor creatinine, monitor urine output, monitor potassium -Magnesium level, TSH within normal limits -Monitor respiratory status closely Atrial fibrillation with rapid ventricular response -Continue home metoprolol -Continue amiodarone drip -Plan on cardioversion tomorrow Transaminitis, likely congestive hepatopathy -With elevated bilirubin, alk phos -Alcohol level, acute hep panel, liver ultrasound no acute findings Prediabetes, A1c 6.3 Acute kidney injury, creatinine 1.6, baseline creatinine unknown, possibly cardiorenal syndrome monitor creatinine and urine output given diuresis Full code Eliquis for DVT prophylaxis Plan for today continue amiodarone drip, spoke to cardiology, increase IV diuresis, plan on cardioversion, patient declines Telles catheter PDMP PDMP Reviewed: Not Reviewed Attestations 2 Medical Necessity Statement*: Patient requires hospitalization for A-fib with RVR, fluid overload Diagnoses Atrial fibrillation with RVR I48.91 Acute exacerbation of CHF (congestive heart failure) I50.9 Transaminitis R74.01 Acute kidney injury N17.9
[2024-06-07 16:00] VITALS: BP 124/89; PULSE 120; RESP 17; O2SAT 98
[2024-06-07] MEDS: pantoprazole 40 mg SDV IVP (17:00)
[2024-06-07] MEDS: dilTIAZem 30 mg Tablet PO (17:01)
[2024-06-07 19:36] VITALS: BP 97/75; PULSE 97; RESP 17; TEMP 37.2; O2SAT 95
[2024-06-07] MEDS: ALPRAZolam 0.5 mg Tablet 0.25 MG PO (20:27)
[2024-06-07] MEDS: MELATONIN 3 MG TABLET 9 MG PO (20:27)
[2024-06-08] VITALS (7 sets, daily range): BP systolic 96–126; BP diastolic 66–98; PULSE 72–124; RESP 15–25; TEMP 36.5–36.9; O2SAT 92–98
[2024-06-08] MEDS: FUROsemide 10 mg/mL SDV 4mL 40 MG IVP ×4 (00:50→23:16)
[2024-06-08] MEDS: ALPRAZolam 0.5 mg Tablet 0.25 MG PO (03:01)
[2024-06-08 03:22] LABS: Basophils % 0.3 %; Eosinophils # 0.1 10^3/uL (0.0-0.8); Eosinophils % 2.1 %; Lymphocytes # 1.1 10^3/uL (0.8-4.8); Lymphocytes % 17.7 %; Mean Corpuscular HGB Conc 30.6 g/dL (30-55); Mean Corpuscular Hemoglobin 20.6 pg (27-33); Mean Corpuscular Volume 67.3 fl (82-101); Mean Platelet Volume 10.2 fL (7.4-10.4); Monocytes # 0.6 10^3/uL (0.2-0.9); Neutrophils % 70.6 %; Nucleated Red Blood Cells % 0 %; Platelet Count 262 10^3/cmm (157-399); Red Blood Count 5.35 10^6/uL (3.85-5.65)
[2024-06-08 03:50] LABS: Alanine Aminotransferase 38 U/L (0-41); Albumin Level 3.7 g/dL (3.5-5.2); Alkaline Phosphatase 188 U/L (40-130); Anion Gap 12.5 (5-19); Aspartate Amino Transferase 38 U/L (0-40); Blood Urea Nitrogen 29 mg/dL (8-23); Calcium 8.8 mg/dL (8.5-10.5); Carbon Dioxide 35 mmol/L (22-29); Chloride 94 mmol/L (98-107); Creatinine Clr Calc Pharmacy 56.3719; Globulin 3.1 g/dL (1.3-4.6); Glomerular Filtration Rate 42.9 mL/min (90-130); Glucose 102 mg/dL (65-115); Magnesium 2.2 mg/dL (1.7-2.3); Osmolality Calculated 292 mOsm/kg (285-295); Phosphorus 3.3 mg/dL (2.5-4.5); Potassium 3.5 mmol/L (3.5-5.1); Sodium 138 mmol/L (136-145); Total Bilirubin 1.6 mg/dL (0.15-1.2); Total Protein 6.8 g/dL (6.6-8.7)
[2024-06-08 03:55] LABS: NT Pro B Type Natriuretic Pept 3961 pg/mL (0-125)
[2024-06-08] MEDS: metoprolol succinate ER (24 HR) 100 mg Tablet 200 MG PO (08:24)
[2024-06-08] MEDS: dilTIAZem 30 mg Tablet PO (08:24)
[2024-06-08] MEDS: atorvastatin 40 mg Tablet PO (08:24)
[2024-06-08] MEDS: amoxicillin-clav 500-125 mg Tablet 1 TAB PO ×2 (08:24→18:10)
[2024-06-08] MEDS: apixaban 5 mg Tablet PO ×2 (08:24→18:10)
[2024-06-08] MEDS: fluoxetine 10 mg Capsule 20 MG PO (08:24)
--- NOTE | 2024-06-08 08:25 | PC.SOCIAL ---
IMM Update Pg. 2 of IMM updated and reviewed with patient, who verbalized understanding. Copy provided.
[2024-06-08] MEDS: potassium chloride ER 20 mEq Tablet 40 MEQ PO (10:12)
--- NOTE | 2024-06-08 12:41 | USCV_ITS ---
Kamron Cook Age: 68 Gender: M : 1955 Exam Date: 06/08/2024 12:28 Ordering Phys: Vy Enriquez NP Technologist: Exam Location: [facility] – [place] Indication: cardioversion BP: / HR: Rhythm: Sinus Technical Quality: MEASUREMENTS (Male / Female) Normal Values Medications Patient given IV sedation by anesthesia service, for details please refer to the anesthesia report. Complications None. Proc. Components The patient was brought to the PRABHJOT examination room in a fasting state after obtaining an informed consent. The PRABHJOT probe was passed into the posterior pharynx , mid-esophagus, distal esophagus, and gastric fundus. PRABHJOT was performed at multiple levels. The patient tolerated the procedure well and there were no complications. FINDINGS Left Ventricle Moderately increased left ventricular cavity size. Severely decreased left ventricular systolic function. Left ventricular ejection fraction is estimated at 25 %. Global left ventricular hypokinesis. Right Ventricle The right ventricle is normal in size and function. Right Atrium The right atrium is normal in size. Left Atrium The left atrium is normal in size. LA Appendage The LA appendage is normal. No thrombus visualized in the left atrial appendage. Spontaneous echo contrast seen in the left atrial appendage. IA Septum The interatrial septum is normal. No interatrial shunt noted. Mitral Valve Structurally normal mitral valve. Mild-moderate mitral valve regurgitation. Aortic Valve Moderate aortic valve calcification. No aortic valve stenosis. Trace aortic valve regurgitation. Tricuspid Valve Mild tricuspid valve regurgitation. Pulmonic Valve Mild pulmonary valve regurgitation. Pericardium Normal pericardium without effusion. Aorta Normal ascending aorta dimension. CONCLUSIONS Moderately increased left ventricular cavity size. Severely decreased left ventricular systolic function. Left ventricular ejection fraction is estimated at 25 %. Global left ventricular hypokinesis. The LA appendage is normal. No thrombus visualized in the left atrial appendage. Spontaneous echo contrast seen in the left atrial appendage. The interatrial septum is normal. No interatrial shunt noted. Structurally normal mitral valve. Mild-moderate mitral valve regurgitation. There is no pericardial effusion. Roslyn Monique MD (Electronically Signed) Final Date: 08 June 2024 22:29 S
--- NOTE | 2024-06-08 13:00 | ANES.PREANE2 ---
Pre-Anesthetic Assessment Height/Weight: Height 6 ft Weight 252 lb 8 oz Temp Pulse Resp BP Pulse Ox O2 Del Method 98.0 F 103 H 25 H 125/94 95 Nasal Cannula 06/08/24 12:00 06/08/24 12:00 06/08/24 12:00 06/08/24 12:00 06/08/24 12:00 06/08/24 12:00 Preop Diagnosis: A-fib with RVR Was Beta Barbara taken within 24 hours: Yes Was Clonidine taken within 24 hours: N/A Social No alcohol and No tobacco Exam alert, oriented x 3, clear to auscultation bilaterally and regular rate & rhythm Airway Submandibular: within normal limits Cervical ROM: within normal limits Mallampati: Class III Dentition: full Anesthetic Plan ASA status: 3 Anesthesia: MAC Other: No prior issues with anesthesia Patient admitted on 06/05/2024 for A-fib with RVR History of hypertension on lisinopril and metoprolol Prior stents placed, on chronic Eliquis. Last taken 06/05/2024 Labs reviewed from today and acceptable for procedure. proBNP [id number] Patient does not wear any home O2 but is currently on nasal cannula Plan for MAC anesthesia Medications/Allergies Home Medications ?Medication ?Instructions ?Recorded ?Confirmed ?Last Taken ?Type amoxicillin 500 mg-potassium 1 tab PO BID 06/05/24 06/05/24 06/05/24 History clavulanate 125 mg tablet (Augmentin) apixaban 5 mg tablet (Eliquis) 5 mg PO BID 06/05/24 06/05/24 06/05/24 History atorvastatin 40 mg tablet 40 mg PO DAILY 06/05/24 06/05/24 06/05/24 History furosemide 40 mg tablet 40 mg PO BID 06/05/24 06/05/24 06/05/24 History lisinopril 20 mg tablet 20 mg PO DAILY 06/05/24 06/05/24 06/05/24 History metoprolol succinate 200 mg 200 mg PO DAILY 06/05/24 06/05/24 06/05/24 History tablet,extended release 24 hr sildenafil 100 mg tablet 100 mg PO DAILY 06/05/24 06/05/24 Unknown History tirzepatide 12.5 mg/0.5 mL 12.5 mg SUBCUT Q7D 06/05/24 06/05/24 Unknown History subcutaneous pen injector (Nga) Allergies Allergy/AdvReac Type Severity Reaction Status Date / Time No Known Allergies Allergy Verified 06/05/24 13:14 Current Medications Generic Name Dose Route Start Last Admin Trade Name Valencia PRN Reason Stop Dose Admin Acetaminophen 650 mg 06/05/24 15:41 06/05/24 23:26 Acetaminophen 325 Mg Tablet PO 650 mg Q6H PRN Administration Mild/Mod Pain Or Temp >/= 101 Alprazolam 0.25 mg 06/06/24 10:24 06/08/24 03:01 Alprazolam 0.5 Mg Tablet PO 0.25 mg TID PRN Administration ANXIETY Amoxicillin/Clavulanate Potassium 1 tab 06/05/24 18:00 06/08/24 08:24 Amoxicillin-Clav 500-125 Mg Tablet PO 1 tab BID JAMES Administration Protocol Apixaban 5 mg 06/05/24 18:00 06/08/24 08:24 Apixaban 5 Mg Tablet PO 5 mg BID JAMES Administration Atorvastatin Calcium 40 mg 06/06/24 09:00 06/08/24 08:24 Atorvastatin 40 Mg Tablet PO 40 mg DAILY JAMES Administration Diltiazem HCl 30 mg 06/07/24 18:00 06/08/24 08:24 Diltiazem 30 Mg Tablet PO 30 mg BID JAMES Administration Fluoxetine HCl 20 mg 06/06/24 10:25 06/08/24 08:24 Fluoxetine 10 Mg Capsule PO 20 mg DAILY JAMES Administration Furosemide 40 mg 06/07/24 16:00 06/08/24 08:24 Furosemide 10 Mg/Ml Sdv 4ml IVP 40 mg Q8H JAMES Administration Amiodarone HCl/Dextrose 360 mg in 200 mls @ 0 mls/hr 06/05/24 13:31 06/08/24 00:50 Nexterone IV 0.5 mg/min .Q0M JAMES 16.67 mls/hr Administration Protocol Per Protocol Melatonin 9 mg 06/05/24 22:45 06/07/24 20:27 Melatonin 3 Mg Tablet PO 9 mg BEDTIME JAMES Administration Metoprolol Succinate 200 mg 06/06/24 09:00 06/08/24 08:24 Metoprolol Succinate Er (24 Hr) 100 Mg Tablet PO 200 mg DAILY JAMES Administration Pantoprazole Sodium 40 mg 06/05/24 15:41 06/07/24 17:00 Pantoprazole 40 Mg Sdv IVP 40 mg Q24H JAMES Administration Trazodone HCl 50 mg 06/05/24 22:25 06/05/24 23:25 Trazodone 50 Mg Tablet PO 50 mg BEDTIME PRN Administration INSOMNIA PFSH Anesthesia Medical History (Updated 06/05/24 @ 15:44 by Abdiel Bishop MD) History of cardioversion History of CAD (coronary artery disease) History of atrial fibrillation Surgical History (Updated 06/05/24 @ 15:42 by Abdiel Bishop MD) History of heart artery stent History of cholecystectomy Family History (Updated 06/05/24 @ 15:43 by Abdiel Bishop MD) Mother CAD (coronary artery disease) Father CAD (coronary artery disease) Social History (Updated 06/05/24 @ 15:43 by Abdiel Bishop MD) Smoking and tobacco/nicotine status: never used tobacco/nicotine Alcohol intake: never Substance/Drug Use: never Data Anesthesia 06/08/24 02:53 06/08/24 02:53 Short CBC 06/07/24 06/08/24 Range/Units 02:50 02:53 WBC 6.09 6.10 (3.29-11.43) 10^3/uL Hgb 10.80 L 11.00 L (11.27-16.99) g/dL Hct 36.4 L 36.0 L (37-53) % MCV 68.3 L 67.3 L (82-101) fl Plt Count 256 262 (157-399) 10^3/cmm Neut % (Auto) 71.7 70.6 % Neut # (Auto) 4.36 4.30 (1.8-7.7) 10^3/uL BMP 06/07/24 06/08/24 02:50 02:53 Sodium 138 138 Potassium 3.5 3.5 Chloride 98 94 L Carbon Dioxide 31 H 35 H BUN 30 H 29 H Creatinine 1.6 H 1.6 H Glucose 104 102 Calcium 8.5 8.8 Cardiac Enzymes 06/08/24 Range/Units 02:53 NT-Pro-B Natriuret Pep 3961 H (0-125) pg/mL Liver Function 06/07/24 06/08/24 Range/Units 02:50 02:53 Total Bilirubin 1.5 H 1.6 H (0.15-1.2) mg/dL AST 45 H 38 (0-40) U/L ALT 40 38 (0-41) U/L Alkaline Phosphatase 179 H 188 H (40-130) U/L Albumin 3.7 3.7 (3.5-5.2) g/dL Cardiac Studies: No Data to Display
--- NOTE | 2024-06-08 13:10 | PC.NURSE ---
Addendum entered by Preston Boggs RN 06/08/24 13:26: 1316 200J of energy provided and successful cardioversion to sinus rhythm HR-65. sedation-per anesthesiologist Derek pt received propofol 140 mg IVP, Ketamine 10 mg IVP. 1327-BP-103/70 MAP-81, spo2-99% on oxymask 9 L/min. will keep monitoring Vitals. Original Note: PRABHJOT w/cardioversion 1310-time out. Dr Monique and Anesthesiologist started moderate sedation. ROWENA Ybarra in room for PRABHJOT as well. 1315 cardioversion at 120 joules. unsuccessful,still afib 1316 cardioversion at 200 J, successful. anesthesiologist-maintaining airway s/p propofol.
--- NOTE | 2024-06-08 13:22 | ECG_ITS ---
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
--- NOTE | 2024-06-08 13:24 | P.PN_ITS ---
Subjective 2 Subjective: Patient was seen this morning, he is alert oriented x 3, following all commands, shortness of breath is improving, edema is improving, remains in A-fib heart rates of the 120s, remains on amiodarone plans on cardioversion today Vitals/I&O/Wt Last Vital Signs Temp 98.0 F 06/08/24 12:00 Pulse 103 H 06/08/24 12:00 Resp 25 H 06/08/24 12:00 BP 125/94 06/08/24 12:00 Pulse Ox 95 06/08/24 12:00 O2 Del Method Nasal Cannula 06/08/24 12:00 06/07/24 06/08/24 06/08/24 22:59 06:59 14:59 Intake Total 810 / 1850 400 / 2250 Balance 810 / -150 400 / 250 Weight last 48 hrs Weight 114.532 kg Weight 115.53 kg Physical Exam 2 Const: COMMON NORMALS: no acute distress and patient oriented x3 Resp: COMMON NORMALS: normal respiratory effort, No retractions, No use of accessory muscles and clear to auscultation bilaterally AUSCULTATION: clear to auscultation bilaterally Cardio: COMMON NORMALS: regular rate, regular rhythm, S1 normal heart sound present and S2 normal heart sound present RATE: regular rate RHYTHM: r egular rhythm HEART SOUNDS: S1 normal heart sound present and S2 normal heart sound present GI: COMMON NORMALS: Normal to inspection, nondistended, normoactive bowel sounds present, Soft to palpation, non-tender, no masses and no bruits P ALPATION: Yes Soft to palpation Extremity: NARRATIVE EXTREMITY EXAM: 1+ edema Neuro: COMMON NORMALS: patient oriented x3 Psych: COMMON NORMALS: mental status grossly normal Data 06/08/24 02:53 06/08/24 02:53 A&P Assessment and plan (1) Atrial fibrillation with RVR: (2) Acute exacerbation of CHF (congestive heart failure): (3) Transaminitis: (4) Acute kidney injury: Plan Acute systolic and diastolic CHF exacerbation Plan -Cardiac echo pending -coutinue with Lasix 40 IV every 8 hours -Monitor creatinine, monitor urine output, monitor potassium -Magnesium level, TSH within normal limits -Monitor respiratory status closely Atrial fibrillation with rapid ventricular response -Continue home metoprolol -Continue amiodarone drip -Plan on cardioversion today Transaminitis, likely congestive hepatopathy -With elevated bilirubin, alk phos -Alcohol level, acute hep panel, liver ultrasound no acute findings Prediabetes, A1c 6.3 Acute kidney injury, creatinine 1.6, baseline creatinine unknown, possibly cardiorenal syndrome monitor creatinine and urine output given diuresis History of sleep apnea start CPAP Full code Eliquis for DVT prophylaxis Plan for today continue amiodarone drip, spoke to cardiology, IV diuresis, plan on cardioversion, patient declines Telles catheter PDMP PDMP Reviewed: Not Reviewed Attestations 2 Medical Necessity Statement*: Patient requires hospitalization for A-fib and RVR requiring cardioversion, systolic CHF ejection requiring IV diuresis Diagnoses Atrial fibrillation with RVR I48.91 Acute exacerbation of CHF (congestive heart failure) I50.9 Transaminitis R74.01 Acute kidney injury N17.9
[2024-06-08] MEDS: amiodarone 200 mg Tablet PO ×2 (14:09→21:20)
--- NOTE | 2024-06-08 14:25 | ANE.PACU2 ---
Inpatient post-anesthesia follow up: Airway intact: Yes Vital signs: Temperature 98.0 F Pulse Rate 103 Respiratory Rate 25 Blood Pressure 125/94 Pulse Oximetry 95 Oxygen Delivery Me thod Nasal Cannula Oxygen Flow Rate Fraction of Inspir ed Oxygen Hydration adequate: Yes Nausea and vomiting: No Pain level: 1 Mental status: Baseline
--- NOTE | 2024-06-08 14:35 | P.PN_ITS ---
<Statement entered by Roslyn Monique MD - 06/09/24 01:08> Patient was evaluated and cared for in conjunction with an advanced practice practitioner. I personally examined the patient and reviewed the chart and all pertinent data including imaging, telemetry, and laboratory results. I discussed the patient in detail with the advanced practice practitioner. Please see their note for complete H&P testing result and agreed upon plan of care for the patient. Subjective 2 Subjective: Patient was cardioverted today successfully after end try 200 J. Currently in sinus rhythm and rate controlled. He did well with the procedure. EF during procedure was diminished at around 25% with global hypokinesis. Vitals/I&O/Wt Last Vital Signs Temp 98.0 F 06/08/24 12:00 Pulse 103 H 06/08/24 12:00 Resp 25 H 06/08/24 12:00 BP 125/94 06/08/24 12:00 Pulse Ox 95 06/08/24 12:00 O2 Del Method Nasal Cannula 06/08/24 12:00 06/07/24 06/08/24 06/08/24 22:59 06:59 14:59 Intake Total 810 / 1850 400 / 2250 Balance 810 / -150 400 / 250 Weight last 48 hrs Weight 252 lb 8 oz Weight 254 lb 11.2 oz Physical Exam 2 Narrative: General: No apparent distress, healthy appearing, well nourished HENMT: normoceophalic Neck: No carotid bruit bilaterally Muskuloskeletal: Full ROM Respiratory: Normal respiratory effort, inspiratory wheezes throughout all lung wahl, no use of accessory muscles Cardio: No JVD, regular rate and rhythm, S1 S2 normal, no murmurs, peripheral pulses 2+ radial palpated bilaterally GI: Normal to inspection, nondistended Extremities: Full ROM, normal, normal capillary refill, 1+ pitting edema bilateral lower extremity Neuro: Alert and oriented x4, no focal motor deficits Psych: Affect normal, denies suicidal ideation, mental status grossly normal Skin: No rashes or lesions noted, no wounds Data 06/08/24 02:53 06/08/24 02:53 A&P Assessment and plan (1) Atrial fibrillation with RVR: (2) Acute exacerbation of CHF (congestive heart failure): (3) Transaminitis: (4) Acute kidney injury: Plan Patient was successfully cardioverted on the second try. We will continue amio drip. Add Amiodarone 200 mg BID if HR is above 60. After 1 hour, discontinue drip. D/C cardizem. Reduced heart function could be due to afib, but will need LHC once euvolemic to make sure that he does not have progressing coronary artery disease. PDMP PDMP Reviewed: Not Reviewed Attestations 2 Medical Necessity Statement*: Deferred to primary. Coding Level of Care Code Acute Code for [facility] Diagnoses Atrial fibrillation with RVR I48.91 Acute exacerbation of CHF (congestive heart failure) I50.9 Transaminitis R74.01 Acute kidney injury N17.9
[2024-06-08 18:04] LABS: Anion Gap 13.5 (5-19); Blood Urea Nitrogen 28 mg/dL (8-23); Calcium 9.2 mg/dL (8.5-10.5); Carbon Dioxide 35 mmol/L (22-29); Chloride 92 mmol/L (98-107); Creatinine Clr Calc Pharmacy 69.0822; Glomerular Filtration Rate 54.6 mL/min (90-130); Glucose 90 mg/dL (65-115); Osmolality Calculated 289 mOsm/kg (285-295); Potassium 3.5 mmol/L (3.5-5.1); Sodium 137 mmol/L (136-145)
[2024-06-08] MEDS: pantoprazole 40 mg SDV IVP (18:10)
[2024-06-08] MEDS: MELATONIN 3 MG TABLET 9 MG PO (21:20)
[2024-06-09] VITALS (10 sets, daily range): BP systolic 99–140; BP diastolic 64–86; PULSE 73–84; RESP 14–22; TEMP 36.4–36.8; O2SAT 92–98; BMI 34.2
[2024-06-09 05:49] LABS: Basophils % 0.5 %; Eosinophils # 0.1 10^3/uL (0.0-0.8); Eosinophils % 2.1 %; Hematocrit 36.5 % (37-53); Lymphocytes # 1.1 10^3/uL (0.8-4.8); Lymphocytes % 17.7 %; Mean Corpuscular HGB Conc 29.9 g/dL (30-55); Mean Corpuscular Hemoglobin 20.2 pg (27-33); Mean Corpuscular Volume 67.6 fl (82-101); Mean Platelet Volume 10.2 fL (7.4-10.4); Monocytes # 0.7 10^3/uL (0.2-0.9); Monocytes % 10.7 %; Neutrophils # 4.37 10^3/uL (1.8-7.7); Neutrophils % 68.8 %; Nucleated Red Blood Cells % 0 %; Platelet Count 294 10^3/cmm (157-399); Red Cell Distribution Width 19.3 % (12.1-15.1); White Blood Count 6.34 10^3/uL (3.29-11.43)
[2024-06-09 06:15] LABS: Alanine Aminotransferase 35 U/L (0-41); Albumin Level 3.6 g/dL (3.5-5.2); Alkaline Phosphatase 183 U/L (40-130); Anion Gap 9.4 (5-19); Aspartate Amino Transferase 35 U/L (0-40); Blood Urea Nitrogen 28 mg/dL (8-23); Calcium 9.2 mg/dL (8.5-10.5); Carbon Dioxide 38 mmol/L (22-29); Chloride 94 mmol/L (98-107); Creatinine Clr Calc Pharmacy 59.8124; Globulin 3.2 g/dL (1.3-4.6); Glomerular Filtration Rate 46.3 mL/min (90-130); Glucose 93 mg/dL (65-115); Magnesium 2.2 mg/dL (1.7-2.3); Osmolality Calculated 291 mOsm/kg (285-295); Phosphorus 3.6 mg/dL (2.5-4.5); Potassium 3.4 mmol/L (3.5-5.1); Sodium 138 mmol/L (136-145); Total Bilirubin 1.8 mg/dL (0.15-1.2); Total Protein 6.8 g/dL (6.6-8.7)
[2024-06-09 06:21] LABS: NT Pro B Type Natriuretic Pept 3047 pg/mL (0-125)
[2024-06-09] MEDS: apixaban 5 mg Tablet PO (08:24)
[2024-06-09] MEDS: amoxicillin-clav 500-125 mg Tablet 1 TAB PO ×2 (08:24→17:09)
[2024-06-09] MEDS: amiodarone 200 mg Tablet PO ×2 (08:24→17:09)
[2024-06-09] MEDS: FUROsemide 10 mg/mL SDV 4mL 40 MG IVP (08:25)
[2024-06-09] MEDS: potassium chloride ER 20 mEq Tablet 40 MEQ PO (08:25)
[2024-06-09] MEDS: atorvastatin 40 mg Tablet PO (08:25)
[2024-06-09] MEDS: fluoxetine 10 mg Capsule 20 MG PO (08:25)
--- NOTE | 2024-06-09 11:52 | P.PN_ITS ---
Subjective 2 Subjective: Seen this morning, shortness of breath is improving, continues to have edema, denies any chest pain, no palpitations, no lightheadedness, dizziness Vitals/I&O/Wt Last Vital Signs Temp 98.3 F 06/09/24 08:00 Pulse 77 06/09/24 08:00 Resp 18 06/09/24 08:00 BP 140/86 06/09/24 08:00 Pulse Ox 95 06/09/24 08:00 O2 Del Method Room Air 06/09/24 08:00 O2 Flow Rate 2 06/09/24 04:55 FiO2 28 06/09/24 03:00 06/08/24 06/09/24 06/09/24 22:59 06:59 14:59 Intake Total 680 / 680 240 / 920 240 / 240 Balance 680 / 250 240 / 490 240 / 240 Weight last 48 hrs Weight 114.305 kg Weight 114.532 kg Physical Exam 2 Const: COMMON NORMALS: no acute distress and patient oriented x3 Resp: COMMON NORMALS: normal respiratory effort, No retractions and No use of accessory muscles AUSCULTATION: crackles and wheezes Cardio: COMMON NORMALS: regular rate, regular rhythm, S1 normal heart sound present and S2 normal heart sound present RATE: regular rate RHYTHM: r egular rhythm HEART SOUNDS: S1 normal heart sound present and S2 normal heart sound present GI: COMMON NORMALS: Normal to inspection, nondistended, normoactive bowel sounds present and non-tender Extremity: NARRATIVE EXTREMITY EXAM: 1+ edema Neuro: COMMON NORMALS: patient oriented x3 Psych: COMMON NORMALS: mental status grossly normal Data 06/09/24 05:02 06/09/24 05:02 A&P Assessment and plan (1) Atrial fibrillation with RVR: (2) Acute exacerbation of CHF (congestive heart failure): (3) Transaminitis: (4) Acute kidney injury: Plan Acute systolic and diastolic CHF exacerbation Plan -Cardiac echo, ejection fraction 25%, global left ventricular hypokinesis, left atrial appendage -coutinue with Lasix 40 IV every 8 hours -Monitor creatinine, monitor urine output, monitor potassium -Magnesium level, TSH within normal limits -Monitor respiratory status closely Atrial fibrillation with rapid ventricular response -Continue home metoprolol -Continue amiodarone Status post cardioversion Transaminitis, likely congestive hepatopathy -With elevated bilirubin, alk phos -Alcohol level, acute hep panel, liver ultrasound no acute findings Prediabetes, A1c 6.3 Acute kidney injury, creatinine 1.6, baseline creatinine unknown, possibly cardiorenal syndrome monitor creatinine and urine output given diuresis History of sleep apnea start CPAP Full code Eliquis for DVT prophylaxis Plan for today continue IV diuresis, PDMP PDMP Reviewed: Not Reviewed Attestations 2 Medical Necessity Statement*: Patient requires hospitalization for CHF exacerbation requiring IV diuresis, atrial fibrillation Diagnoses Atrial fibrillation with RVR I48.91 Acute exacerbation of CHF (congestive heart failure) I50.9 Transaminitis R74.01 Acute kidney injury N17.9
[2024-06-09] MEDS: pantoprazole 40 mg SDV IVP (17:10)
[2024-06-09] MEDS: MELATONIN 3 MG TABLET 9 MG PO (21:20)
--- NOTE | 2024-06-09 22:18 | P.PN_ITS ---
Subjective 2 Subjective: Remains in sinus rhythm overall feeling much better and improved renal function mildly elevated Vitals/I&O/Wt Last Vital Signs Temp 97.8 F 06/09/24 19:30 Pulse 77 06/09/24 19:30 Resp 15 06/09/24 19:30 BP 117/74 06/09/24 19:30 Pulse Ox 95 06/09/24 19:30 O2 Del Method Room Air 06/09/24 19:30 O2 Flow Rate 2 06/09/24 04:55 FiO2 28 06/09/24 03:00 06/09/24 06/09/24 06/09/24 06:59 14:59 22:59 Intake Total 240 / 920 480 / 480 480 / 960 Balance 240 / 490 480 / 480 480 / 960 Weight last 48 hrs Weight 252 lb Weight 252 lb 8 oz Physical Exam 2 Const: OTHER: GENERAL: Patient is alert, awake and oriented x3. HEART: Regular S1 and S2. No murmur, rub or gallop. LUNGS: Clear to auscultate bilaterally. CENTRAL NERVOUS SYSTEM: Grossly nonfocal. EXTREMITIES: Lower extremities with out edema bilaterally. Data 06/09/24 05:02 06/09/24 05:02 A&P Assessment and plan (1) Atrial fibrillation with RVR: (2) Acute exacerbation of CHF (congestive heart failure): (3) Transaminitis: (4) Acute kidney injury: Plan Patient is successfully cardioverted remains in sinus rhythm status post cardioversion Continue amiodarone 200 mg p.o Continue metoprolol succinate p.o. 200 mg daily Patient is euvolemic therefore discontinue IV Lasix and switch to p.o. 40 mg of Lasix once a day Hold apixaban for possible left heart cath once renal function improves and within 36-hour of stopping apixaban PDMP PDMP Reviewed: Not Reviewed Attestations 2 Medical Necessity Statement*: Patient require continuation hospitalization for above defined care. Coding Level of Care Code Acute Code for [facility] Diagnoses Atrial fibrillation with RVR I48.91 Acute exacerbation of CHF (congestive heart failure) I50.9 Transaminitis R74.01 Acute kidney injury N17.9
[2024-06-09] MEDS: diphenhydrAMINE 25 mg Capsule PO (23:04)
[2024-06-09] MEDS: hydrocortisone 2.5% cream 28 gm 1 APPLIC TOPICAL (23:04)
[2024-06-10] VITALS (9 sets, daily range): BP systolic 109–126; BP diastolic 64–94; PULSE 70–77; RESP 18–21; TEMP 36.6–36.9; O2SAT 91–96
[2024-06-10 05:02] LABS: Basophils % 0.6 %; Eosinophils # 0.2 10^3/uL (0.0-0.8); Eosinophils % 2.8 %; Hematocrit 37.9 % (37-53); Lymphocytes # 1.5 10^3/uL (0.8-4.8); Lymphocytes % 23.2 %; Mean Corpuscular HGB Conc 30.9 g/dL (30-55); Mean Corpuscular Hemoglobin 20.9 pg (27-33); Mean Corpuscular Volume 67.6 fl (82-101); Mean Platelet Volume 10.1 fL (7.4-10.4); Monocytes # 0.7 10^3/uL (0.2-0.9); Monocytes % 11.4 %; Neutrophils # 3.89 10^3/uL (1.8-7.7); Neutrophils % 61.5 %; Nucleated Red Blood Cells % 0 %; Platelet Count 295 10^3/cmm (157-399); Red Blood Count 5.61 10^6/uL (3.85-5.65); Red Cell Distribution Width 19.6 % (12.1-15.1); White Blood Count 6.33 10^3/uL (3.29-11.43)
[2024-06-10 05:20] LABS: Alanine Aminotransferase 35 U/L (0-41); Albumin Level 3.5 g/dL (3.5-5.2); Alkaline Phosphatase 179 U/L (40-130); Anion Gap 11.5 (5-19); Aspartate Amino Transferase 35 U/L (0-40); Blood Urea Nitrogen 25 mg/dL (8-23); Calcium 8.8 mg/dL (8.5-10.5); Carbon Dioxide 39 mmol/L (22-29); Chloride 91 mmol/L (98-107); Creatinine Clr Calc Pharmacy 74.7655; Globulin 2.8 g/dL (1.3-4.6); Glomerular Filtration Rate 59.9 mL/min (90-130); Glucose 100 mg/dL (65-115); Magnesium 2.2 mg/dL (1.7-2.3); Osmolality Calculated 290 mOsm/kg (285-295); Phosphorus 3.2 mg/dL (2.5-4.5); Potassium 3.5 mmol/L (3.5-5.1); Sodium 138 mmol/L (136-145); Total Bilirubin 1.7 mg/dL (0.15-1.2); Total Protein 6.3 g/dL (6.6-8.7)
[2024-06-10 05:27] LABS: NT Pro B Type Natriuretic Pept 2113 pg/mL (0-125)
[2024-06-10] MEDS: enoxaparin 120 mg/0.8 mL Syringe 110 MG SUBCUT (09:40)
[2024-06-10] MEDS: amiodarone 200 mg Tablet PO ×2 (09:42→17:48)
[2024-06-10] MEDS: FUROsemide 40 mg Tablet PO (09:42)
[2024-06-10] MEDS: amoxicillin-clav 500-125 mg Tablet 1 TAB PO (09:42)
[2024-06-10] MEDS: metoprolol succinate ER (24 HR) 100 mg Tablet 200 MG PO (09:42)
[2024-06-10] MEDS: atorvastatin 40 mg Tablet PO (09:42)
[2024-06-10] MEDS: fluoxetine 10 mg Capsule 20 MG PO (09:42)
--- NOTE | 2024-06-10 14:59 | P.PN_ITS ---
Subjective 2 Subjective: Continue remain sinus rhythm Vitals/I&O/Wt Last Vital Signs Temp 97.9 F 06/10/24 12:00 Pulse 70 06/10/24 12:00 Resp 18 06/10/24 12:00 BP 120/84 06/10/24 12:00 Pulse Ox 95 06/10/24 12:00 O2 Del Method Room Air 06/10/24 12:00 O2 Flow Rate 2 06/09/24 21:00 FiO2 28 06/09/24 21:00 06/09/24 06/10/24 06/10/24 22:59 06:59 14:59 Intake Total 480 / 960 1200 / 2160 720 / 720 Balance 480 / 960 1200 / 2160 720 / 720 Weight last 48 hrs Weight 252 lb Physical Exam 2 Const: OTHER: GENERAL: Patient is alert, awake and oriented x3. HEART: Regular S1 and S2. No murmur, rub or gallop. LUNGS: Clear to auscultate bilaterally. CENTRAL NERVOUS SYSTEM: Grossly nonfocal. EXTREMITIES: Lower extremities with out edema bilaterally. Data 06/10/24 04:37 06/10/24 04:37 A&P Assessment and plan (1) Atrial fibrillation with RVR: (2) Acute exacerbation of CHF (congestive heart failure): (3) Transaminitis: (4) Acute kidney injury: Plan Hold Lasix for tomorrow N.p.o. after tomorrow giving breakfast most likely angiogram will be towards the evening after 5 PM Continue holding apixaban Continue amiodarone 200 mg twice daily Continue metoprolol 200 mg once a day PDMP PDMP Reviewed: Not Reviewed Attestations 2 Medical Necessity Statement*: Patient need to stay for left heart cath due to new onset of LV dysfunction heart failure Coding Level of Care Code Acute Code for [facility] Diagnoses Atrial fibrillation with RVR I48.91 Acute exacerbation of CHF (congestive heart failure) I50.9 Transaminitis R74.01 Acute kidney injury N17.9
--- NOTE | 2024-06-10 15:06 | P.PN_ITS ---
Subjective 2 Subjective: Patient was seen this morning, currently alert oriented x 3, follow commands, shortness of breath is improving, edema is improving, Vitals/I&O/Wt Last Vital Signs Temp 97.9 F 06/10/24 12:00 Pulse 70 06/10/24 12:00 Resp 18 06/10/24 12:00 BP 120/84 06/10/24 12:00 Pulse Ox 95 06/10/24 12:00 O2 Del Method Room Air 06/10/24 12:00 O2 Flow Rate 2 06/09/24 21:00 FiO2 28 06/09/24 21:00 06/10/24 06/10/24 06/10/24 06:59 14:59 22:59 Intake Total 1200 / 2160 720 / 720 Balance 1200 / 2160 720 / 720 Weight last 48 hrs Weight 114.305 kg Physical Exam 2 Const: COMMON NORMALS: no acute distress and patient oriented x3 Resp: COMMON NORMALS: normal respiratory effort, No retractions, No use of accessory muscles and clear to auscultation bilaterally AUSCULTATION: clear to auscultation bilaterally Cardio: COMMON NORMALS: regular rate, regular rhythm, S1 normal heart sound present and S2 normal heart sound present RATE: regular rate RHYTHM: r egular rhythm HEART SOUNDS: S1 normal heart sound present and S2 normal heart sound present GI: COMMON NORMALS: Normal to inspection, nondistended, normoactive bowel sounds present and non-tender Extremity: COMMON NORMALS: no pedal edema Neuro: COMMON NORMALS: patient oriented x3 Psych: COMMON NORMALS: mental status grossly normal Data 06/10/24 04:37 06/10/24 04:37 A&P Assessment and plan (1) Atrial fibrillation with RVR: (2) Acute exacerbation of CHF (congestive heart failure): (3) Transaminitis: (4) Acute kidney injury: Plan Acute systolic and diastolic CHF exacerbation Plan -Cardiac echo, ejection fraction 25%, global left ventricular hypokinesis, left atrial appendage - Appears euvolemic today, will transition to p.o. Lasix -Monitor creatinine, monitor urine output, monitor potassium -Magnesium level, TSH within normal limits -Monitor respiratory status closely NSTEMI, cardiomyopathy - Currently on therapeutic Lovenox - Plan on coronary angiography tomorrow Atrial fibrillation with rapid ventricular response -Continue home metoprolol -Continue amiodarone Status post cardioversion - Off Eliquis, on therapeutic Lovenox Transaminitis, likely congestive hepatopathy -With elevated bilirubin, alk phos -Alcohol level, acute hep panel, liver ultrasound no acute findings Prediabetes, A1c 6.3 Acute kidney injury, creatinine 1.2 baseline creatinine unknown, possibly cardiorenal syndrome monitor creatinine and urine output given diuresis History of sleep apnea start CPAP Full code Eliquis for DVT prophylaxis Plan for today monitor creatinine, monitor diuresis, n.p.o. after breakfast tomorrow, for coronary angiography PDMP PDMP Reviewed: Not Reviewed Attestations 2 Medical Necessity Statement*: Patient requires hospitalization for CHF, NSTEMI Diagnoses Atrial fibrillation with RVR I48.91 Acute exacerbation of CHF (congestive heart failure) I50.9 Transaminitis R74.01 Acute kidney injury N17.9
[2024-06-10] MEDS: pantoprazole 40 mg SDV IVP (17:48)
[2024-06-10] MEDS: MELATONIN 3 MG TABLET 9 MG PO (21:10)
[2024-06-11] VITALS (7 sets, daily range): BP systolic 107–122; BP diastolic 78–88; PULSE 72–115; RESP 12–19; TEMP 36.6; O2SAT 93–97
[2024-06-11 04:25] LABS: Basophils % 0.7 %; Eosinophils # 0.2 10^3/uL (0.0-0.8); Hematocrit 39.9 % (37-53); Lymphocytes # 1.4 10^3/uL (0.8-4.8); Lymphocytes % 24.1 %; Mean Corpuscular HGB Conc 30.3 g/dL (30-55); Mean Corpuscular Hemoglobin 20.3 pg (27-33); Mean Corpuscular Volume 66.8 fl (82-101); Mean Platelet Volume 9.7 fL (7.4-10.4); Monocytes # 0.6 10^3/uL (0.2-0.9); Monocytes % 10.8 %; Neutrophils % 61.1 %; Nucleated Red Blood Cells % 0 %; Platelet Count 300 10^3/cmm (157-399); Red Blood Count 5.97 10^6/uL (3.85-5.65); Red Cell Distribution Width 19.8 % (12.1-15.1); White Blood Count 5.73 10^3/uL (3.29-11.43)
[2024-06-11 04:53] LABS: Alanine Aminotransferase 45 U/L (0-41); Albumin Level 3.5 g/dL (3.5-5.2); Alkaline Phosphatase 184 U/L (40-130); Anion Gap 13.3 (5-19); Aspartate Amino Transferase 43 U/L (0-40); Blood Urea Nitrogen 21 mg/dL (8-23); Calcium 8.7 mg/dL (8.5-10.5); Carbon Dioxide 35 mmol/L (22-29); Chloride 92 mmol/L (98-107); Creatinine Clr Calc Pharmacy 77.5614; Globulin 3.3 g/dL (1.3-4.6); Glomerular Filtration Rate 66.2 mL/min (90-130); Glucose 96 mg/dL (65-115); Magnesium 2.3 mg/dL (1.7-2.3); NT Pro B Type Natriuretic Pept 1503 pg/mL (0-125); Osmolality Calculated 287 mOsm/kg (285-295); Phosphorus 2.8 mg/dL (2.5-4.5); Potassium 3.3 mmol/L (3.5-5.1); Sodium 137 mmol/L (136-145); Total Bilirubin 1.7 mg/dL (0.15-1.2); Total Protein 6.8 g/dL (6.6-8.7)
[2024-06-11] MEDS: metoprolol succinate ER (24 HR) 100 mg Tablet 200 MG PO (07:34)
[2024-06-11] MEDS: fluoxetine 10 mg Capsule 20 MG PO (07:34)
[2024-06-11] MEDS: atorvastatin 40 mg Tablet PO (07:34)
[2024-06-11] MEDS: amiodarone 200 mg Tablet PO (07:35)
[2024-06-11] MEDS: ALPRAZolam 0.5 mg Tablet 0.25 MG PO (07:35)
[2024-06-11] MEDS: FUROsemide 40 mg Tablet PO (07:35)
--- NOTE | 2024-06-11 07:48 | ECG_ITS ---
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 Measurements Intervals [place] Rate: 109 P: 0 MS: 0 QRS: 52 QRSD: 89 T: 62 QT: 373 QTc: 504 Interpretive Statements ATRIAL FIBRILLATION WITH RAPID VENTRICULAR RESPONSE WITH ABERRANT CONDUCTION OR VENTRICULAR PREMATURE COMPLEXES NONSPECIFIC T-WAVE ABNORMALITY Compared to ECG 06/08/2024 13:40:07 Ventricular premature complex(es) now present Aberrant conduction of supraventricular beat(s) now present T-wave abnormality now present Sinus rhythm no longer present Prolonged QT interval no longer present Electronically Signed On 06-11-2024 22:25:19 CDT by Hammad Martinez M.D. [email or web address]
[2024-06-11] MEDS: potassium chloride ER 20 mEq Tablet 40 MEQ PO (08:36)
[2024-06-11] MEDS: amiodarone 150 MG/100 ML PREMIX 400 MG IV (09:29)
--- NOTE | 2024-06-11 10:15 | XACV_ITS ---
Exam Room: [facility] Ht: 183 cm Wt: 103 kg BSA: 2.31 m2 Gender: Male : 1955 Any Known Allergies: No known allergies Exam Priority: Routine Indication(s): - New onset CHF - Atrial fibrillation Procedure(s): Procedure Description: Diagnostic procedure Procedure Description: Coronary Angiography KEISHA, Monique; Diagnostic Cath Status: Urgent Diagnostic Findings * Left Main has no disease. * Circumflex has no disease. * Right Coronary Artery has no disease. * Proximal Left Anterior Descending: mild 40% stenosis, SOFIE: 3 flow. * Mid Left Anterior Descending: mild 40% stenosis, SOFIE: 3 flow. * 1st Diagonal: mild 40% stenosis, SOFIE: 3 flow. * Coronary angiography shows right dominance. Conclusions 1. There is mild coronary artery disease with one vessel disease. Recommendations * Continue current medical management and risk factor modification. Pressures Phase:Rest AO : 94 / 71 ( 85 ) @ 6:30:00 PM 103 / 81 ( 92 ) @ 6:36:00 PM 98 / 79 ( 88 ) @ 6:37:00 PM Clinical Evaluation EBL: 5mL-10mL Procedural Details Procedure Consent Obtained. Admit Source: In Patient. Pre-Procedure Time Out. Identified patient by full name and date of as verbalized by the patient/guarantor. Does the consent match the physician's order: Yes. Accurate & Complete Informed Consent: Yes. Inpatient/Outpatient History & Physical on Chart: Yes. If H&P is completed, is and addenduem needed: No; If yes, is the addendum complete: N/A. Visualize and Verify Site with Patient/Guarantor: N/A. Relevant Radiology Images available: N/A. Pre-op teaching completed and patient verbalized understanding. The risks, benefits, and alternatives of sedation and/or procedure were discussed by physician. The patient agrees to continue. Procedure started. [facility] Clinical Fraility Score: 3: Managing Well. Equipment Planner Indications: Cardiomyopathy. Chest Pain Symptom Assessment: Typical Angina Symptoms. Cardiovascular Instability: Yes, if yes, Persistant Ischemic Symptoms. Correct patient, site and procedure confirmed by cath team. Current diagnosis: Chest Pain. PERRLA. Strong, equal hand entertainment lawyer bilaterally. Lungs clear x 5 lobes. IV Site on Arrival: 20 gauge in the right forearm. IV Fluids: 0.9% NaCl at KVO. 0 mL infused prior to lab scientist. Pre Procedural Pulses: right radial was 2+. Pre Procedural Pulses: bilateral dorsalis pedis was 2+. Oxygen started at 2liters/min via nasal canula. right groin was prepped with chloroprep then draped in the usual sterile fashion. right radial was prepped with chloroprep then draped in the usual sterile fashion. Baseline sample Acquired. HR: 99 BPM. Physician notified. Physician arrived. Physician scrubbed in. Immediate Pre-Procedure Time Out. Correct Patient: Yes; Correct Procedure: Yes; Correct Site: Yes; Correct Patient Position: Yes; Correct Supplies: Yes; Dried Flammable Prep: Yes; Blood Products Available: N/A;. Lidocaine 1% infiltrated to the right radial. Arterial access obtained. A 5 faroese TIG catheter in over wire. Catheter redirected to the RCA. Multiple views taken of left coronary artery. Unable to engage RCA. Catheter out over the exchange wire. A 5 faroese JR4 catheter in over wire. Multiple views taken of right coronary artery. Catheter removed over the exchange wire. Physician scrubbed out. Physician review of cine films. A TR Band was successful obtaining hemostatsis at the Right Radial artery insertion site. Post Procedure: Pulses reassessed and unchanged. PERRLA. Strong, equal hand entertainment lawyer bilaterally. No VTE prophylaxis required. Medication's Wasted: Lidocaine 1% = 18 mL. Medication's Wasted: Heparin = 1000 u. Medication's Wasted: Nitro = 49.8 mg. Medication's Wasted: Other = Fentanyl 25 mcg. Total IV fluids: 30 mL. Post-op diagnosis: Non obstructive CAD. Complications: none. Estimated blood loss: 5mL-10mL. Responsiveness - Normal response to verbal stimuli; alert and oriented, PERRLA. Airway - Unaffected, no intervention required; spontaneous ventilation. Circulation: W/N/L, pulses unchanged. Nausea/Vomiting: No. Procedure completed. Patient transferred by bed to 1st floor. Vital chart was stopped. Access Site Site: Right Radial artery Sheath Size: 6 Fr Hemostasis Method: TR Band Hemostasis Success: Successful Procedure Medications Start: 5:00 PM Stop: 5:00 PM Medication: Benadryl Amount: 50 mg Route: I.V. Start: 5:15 PM Stop: 5:15 PM Medication: Versed Amount: 1 mg Route: I.V. Start: 5:15 PM Stop: 5:15 PM Medication: Fentanyl Amount: 25 mcg Route: I.V. Start: 5:24 PM Stop: 5:24 PM Medication: Fentanyl Amount: 50 mcg Route: I.V. Start: 5:28 PM Stop: 5:28 PM Medication: Nitrogylcerin Amount: 200 mcg Route: I.A. Start: 5:29 PM Stop: 5:29 PM Medication: Heparin Amount: 5000 units Route: I.V. Start: 5:24 PM Stop: 5:24 PM Medication: Versed Amount: 1 mg Route: I.V. I, the attending physician, have reviewed and verified all procedure medications. Yes, all medications given per verbal order History/Risk Factors Hypertension: Yes Dyslipidemia: Yes Peripheral Arterial Disease (PAD): No Myocardial Infarction (AR): No Obesity: Yes Renal Disease: No Tobacco Use: Never Prior Interventions PCI: Yes CABG: No Valve Surgery: No Date of PCI: 03/07/2022 Report Signatures Finalized by Roslyn Monique MD on 06/11/2024 05:52 PM
--- NOTE | 2024-06-11 10:23 | PC.SOCIAL ---
IMM Updated Updated pt on IMM. No questions voiced. Provided pt a copy. Initialed, dated, & timed copy in chart.
--- NOTE | 2024-06-11 11:01 | P.PN_ITS ---
<Statement entered by Roslyn Monique MD - 06/12/24 20:32> Patient was evaluated and cared for in conjunction with an advanced practice practitioner. I personally examined the patient and reviewed the chart and all pertinent data including imaging, telemetry, and laboratory results. I discussed the patient in detail with the advanced practice practitioner. Please see their note for complete H&P testing result and agreed upon plan of care for the patient. Patient reverted back to atrial fibrillation but controlled heart rate started on IV amiodarone and taken to the Station Detective patient was noted to have nonobstructive coronary artery disease GENERAL: Patient is alert, awake and oriented x3. HEART: Regular S1 and S2. No murmur, rub or gallop. LUNGS: Clear to auscultate bilaterally. CENTRAL NERVOUS SYSTEM: Grossly nonfocal. EXTREMITIES: Lower extremities with out edema bilaterally. Assessment and plan New onset of heart failure New onset of severe LV dysfunction less than 35% Atrial fibrillation new onset status post electrical cardioversion and reverted back into A-fib started on IV amiodarone Patient was taken to the Station Detective noted to have no significant obstructive coronary artery disease this evening Will switch patient to p.o. amiodarone 40 mg 3 times daily will optimize medication to proceed with rate control strategy Once heart rate under control will discharge home Subjective 2 Subjective: Patient went back into A-fib although rates are somewhat controlled. He denies any chest pain at this time. Overall he appears euvolemic. Potassium has been slightly low at 3.3. This is getting replaced. Vitals/I&O/Wt Last Vital Signs Temp 97.9 F 06/11/24 07:18 Pulse 115 H 06/11/24 07:18 Resp 12 06/11/24 07:18 BP 107/81 06/11/24 07:18 Pulse Ox 95 06/11/24 07:18 O2 Del Method Room Air 06/11/24 07:18 O2 Flow Rate 2 06/09/24 21:00 FiO2 28 06/09/24 21:00 06/10/24 06/11/24 06/11/24 22:59 06:59 14:59 Intake Total 240 / 960 340 / 340 Balance 240 / 960 340 / 340 Weight last 48 hrs Weight 227 lb 0.8 oz Physical Exam 2 Narrative: General: No apparent distress, healthy appearing, well nourished HENMT: normoceophalic Muskuloskeletal: Full ROM Respiratory: Normal respiratory effort, clear throughout, no use of accessory muscles Cardio: No JVD, regular rate and rhythm, S1 S2 normal, no murmurs, peripheral pulses 2+ radial palpated bilaterally GI: Normal to inspection, nondistended Extremities: Full ROM, normal, normal capillary refill, no edema Neuro: Alert and oriented x4, no focal motor deficits Psych: Affect normal, denies suicidal ideation, mental status grossly normal Skin: No rashes or lesions noted, no wounds Data 06/11/24 03:55 06/11/24 03:55 A&P Assessment and plan (1) Atrial fibrillation with RVR: (2) Acute exacerbation of CHF (congestive heart failure): (3) Transaminitis: (4) Acute kidney injury: Plan At this time patient will require left heart cath due to new onset systolic heart failure. Will do this tentatively around 5 today. Will keep him n.p.o. at this time. Patient will also need to be cardioverted back into sinus rhythm. We will place him back on the amiodarone drip and plan for cardioversion tomorrow. Will keep him n.p.o. after midnight. PDMP PDMP Reviewed: Not Reviewed Attestations 2 Medical Necessity Statement*: Deferred to primary. Coding Level of Care Code Acute Code for [facility] Diagnoses Atrial fibrillation with RVR I48.91 Acute exacerbation of CHF (congestive heart failure) I50.9 Transaminitis R74.01 Acute kidney injury N17.9
--- NOTE | 2024-06-11 15:30 | P.PN_ITS ---
Subjective 2 Subjective: Patient was seen this morning, he is alert oriented x 3, following all commands, denies any fevers, chills, no cough no chest pain overnight, patient is a bit frustrated this morning as he is gone back into A-fib, heart rates as high as 110, discussed resuming amiodarone drip with amiodarone bolus, if heart rates are under control plans on coronary angiography this afternoon Vitals/I&O/Wt Last Vital Signs Temp 97.8 F 06/11/24 12:00 Pulse 89 06/11/24 12:00 Resp 17 06/11/24 12:00 BP 112/86 06/11/24 12:00 Pulse Ox 93 06/11/24 11:09 O2 Del Method Room Air 06/11/24 11:09 O2 Flow Rate 2 06/09/24 21:00 FiO2 28 06/09/24 21:00 06/11/24 06/11/24 06/11/24 06:59 14:59 22:59 Intake Total 340 / 340 Balance 340 / 340 Weight last 48 hrs Weight 102.988 kg Physical Exam 2 Const: COMMON NORMALS: no acute distress and patient oriented x3 Resp: COMMON NORMALS: normal respiratory effort, No retractions, No use of accessory muscles and clear to auscultation bilaterally AUSCULTATION: clear to auscultation bilaterally Cardio: COMMON NORMALS: regular rate, regular rhythm, S1 normal heart sound present and S2 normal heart sound present RATE: regular rate RHYTHM: r egular rhythm HEART SOUNDS: S1 normal heart sound present and S2 normal heart sound present GI: COMMON NORMALS: Normal to inspection, nondistended, normoactive bowel sounds present and non-tender Extremity: COMMON NORMALS: no pedal edema Neuro: COMMON NORMALS: patient oriented x3 Psych: COMMON NORMALS: mental status grossly normal Data 06/11/24 03:55 06/11/24 03:55 A&P Assessment and plan (1) Atrial fibrillation with RVR: (2) Acute exacerbation of CHF (congestive heart failure): (3) Transaminitis: (4) Acute kidney injury: Plan Acute systolic and diastolic CHF exacerbation Plan -Cardiac echo, ejection fraction 25%, global left ventricular hypokinesis, left atrial appendage - Continue p.o. Lasix -Monitor creatinine, monitor urine output, monitor potassium -Magnesium level, TSH within normal limits -Monitor respiratory status closely NSTEMI, cardiomyopathy - Currently on therapeutic Lovenox - Plan on coronary angiography today Atrial fibrillation with rapid ventricular response -Continue home metoprolol Status post cardioversion - Off Eliquis, on therapeutic Lovenox - Back in atrial fibrillation with rapid ventricular response, amiodarone 150 bolus followed by amiodarone drip Transaminitis, likely congestive hepatopathy -With elevated bilirubin, alk phos -Alcohol level, acute hep panel, liver ultrasound no acute findings Prediabetes, A1c 6.3 Acute kidney injury, creatinine 1.1 baseline creatinine unknown, possibly cardiorenal syndrome monitor creatinine and urine output given diuresis History of sleep apnea start CPAP Full code Eliquis for DVT prophylaxis Plan for today monitor A-fib with RVR, amiodarone bolus followed by amiodarone drip, keep n.p.o. with plans of possible coronary angiography later on this afternoon PDMP PDMP Reviewed: Not Reviewed Attestations 2 Medical Necessity Statement*: Patient requires hospitalization for acute A-fib with RVR, NSTEMI Diagnoses Atrial fibrillation with RVR I48.91 Acute exacerbation of CHF (congestive heart failure) I50.9 Transaminitis R74.01 Acute kidney injury N17.9
--- NOTE | 2024-06-11 15:44 | ECG_ITS ---
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 Measurements Intervals [place] Rate: 106 P: 0 OR: 0 QRS: 58 QRSD: 94 T: 68 QT: 398 QTc: 530 Interpretive Statements ATRIAL FLUTTER WITH RAPID VENTRICULAR RESPONSE Compared to ECG 06/11/2024 07:48:40 Atrial fibrillation no longer present Ventricular premature complex(es) no longer present Aberrant conduction of supraventricular beat(s) no longer present T-wave abnormality no longer present Electronically Signed On 06-11-2024 22:27:19 CDT by Hammad Martinez M.D. [email or web address] [id number]
[2024-06-11 16:04] LABS: Reticulocyte % 1.1 % (0.5-2.0)
[2024-06-11 16:24] LABS: Ferritin 33 ng/mL (30-400); Iron 38 ug/dL (59-158); Percent Saturation 9.7 % (20-50); Total Iron Binding Capacity 388 mcg/dl; Unsaturated Iron Binding 350 ug/dL (112-347)
--- NOTE | 2024-06-11 17:19 | W.PM.OPSUD ---
Surgery/Procedure H&P Update DATE OF PROCEDURE: June 11, 2024 DATE H&P PERFORMED: 06/07/24 H&P UPDATE INFORMATION: I have reviewed H&P completed within last 30 days, I have examined patient prior to procedure and No changes to prior documentation PREOP DIAGNOSIS: A-fib with RVR PLANNED PROCEDURE: Operation Date: 06/11/24 17:00 Proposed Procedures p Cardiac Catheterization(Left) - Roslyn oMnique MD PATIENT REASSESSED PRIOR TO SEDATION, WITH NO CHANGE NOTED: Yes PHYSICAL EXAM: alert, oriented x 3, clear to auscultation bilaterally, regular rate & rhythm and operative site marked AIRWAY EVAL/ANESTHESIA PLAN: ASA II, Risks, benefits & alternatives of sedation and/or procedure discussed and Patient agrees to continue as planned ADDITIONAL INFORMATION: Patient has been explained all risk-benefit and alternative for the procedure. Patient understand 2% risk of stroke major minor bleed, patient understand 5% risk for contrast-induced nephropathy minor bleeding infection hematoma urgent emergent vascular bypass surgery. Patient would like to proceed with it.
[2024-06-11] MEDS: pantoprazole 40 mg SDV IVP (18:04)
[2024-06-11] MEDS: amiodarone 200 mg Tablet 400 MG PO (18:04)
[2024-06-11] MEDS: MELATONIN 3 MG TABLET 9 MG PO (20:22)
[2024-06-12] VITALS (13 sets, daily range): BP systolic 103–119; BP diastolic 69–79; PULSE 91–121; RESP 14–24; TEMP 36.3–37.1; O2SAT 90–98
[2024-06-12 03:11] LABS: Basophils # 0.1 10^3/uL (0.0-0.1); Basophils % 0.9 %; Eosinophils # 0.1 10^3/uL (0.0-0.8); Eosinophils % 2.3 %; Lymphocytes # 1.6 10^3/uL (0.8-4.8); Lymphocytes % 28.7 %; Mean Corpuscular HGB Conc 30.2 g/dL (30-55); Mean Corpuscular Hemoglobin 20.8 pg (27-33); Mean Corpuscular Volume 68.9 fl (82-101); Mean Platelet Volume 9.8 fL (7.4-10.4); Monocytes # 0.8 10^3/uL (0.2-0.9); Monocytes % 14.2 %; Neutrophils % 53.7 %; Nucleated Red Blood Cells % 0 %; Platelet Count 339 10^3/cmm (157-399); Red Blood Count 5.95 10^6/uL (3.85-5.65); Red Cell Distribution Width 19.9 % (12.1-15.1); White Blood Count 5.58 10^3/uL (3.29-11.43)
[2024-06-12 03:53] LABS: Anion Gap 12.1 (5-19); Blood Urea Nitrogen 23 mg/dL (8-23); Calcium 8.7 mg/dL (8.5-10.5); Carbon Dioxide 33 mmol/L (22-29); Chloride 96 mmol/L (98-107); Glomerular Filtration Rate 59.9 mL/min (90-130); Glucose 83 mg/dL (65-115); Osmolality Calculated 287 mOsm/kg (285-295); Potassium 4.1 mmol/L (3.5-5.1); Sodium 137 mmol/L (136-145)
[2024-06-12 03:56] LABS: NT Pro B Type Natriuretic Pept 2027 pg/mL (0-125)
--- NOTE | 2024-06-12 06:23 | PC.NURSE ---
TR band removed TR band was removed at 2330 06/11. The air was released by 1-2mL every 15-20minutes, no oozing noted, no hematoma noted, site was cleaned with water to remove old/dried blood, a 2x2 and tegaderm placed over site, patient requested coband for over the tegaderm to help remind him to not put weigh on that wrist, patient was educated not to pull, or push with that arm, patient verbalized understanding, vitals signs remained stable through out the night.
[2024-06-12] MEDS: amiodarone 200 mg Tablet 400 MG PO ×3 (08:20→20:20)
[2024-06-12] MEDS: FUROsemide 40 mg Tablet PO (08:20)
[2024-06-12] MEDS: metoprolol succinate ER (24 HR) 100 mg Tablet 200 MG PO (08:20)
[2024-06-12] MEDS: atorvastatin 40 mg Tablet PO (08:20)
[2024-06-12] MEDS: fluoxetine 10 mg Capsule 20 MG PO (08:20)
[2024-06-12] MEDS: enoxaparin 120 mg/0.8 mL Syringe 110 MG SUBCUT (08:21)
--- NOTE | 2024-06-12 10:03 | P.PN_ITS ---
<Statement entered by Roslyn Monique MD - 06/12/24 20:54> Patient was evaluated and cared for in conjunction with an advanced practice practitioner. I personally examined the patient and reviewed the chart and all pertinent data including imaging, telemetry, and laboratory results. I discussed the patient in detail with the advanced practice practitioner. Please see their note for complete H&P testing result and agreed upon plan of care for the patient. Denies any chest pain patient heart rate is in 1 teens with atrial tachycardia GENERAL: Patient is alert, awake and oriented x3. HEART: Regular S1 and S2. No murmur, rub or gallop. LUNGS: Clear to auscultate bilaterally. CENTRAL NERVOUS SYSTEM: Grossly nonfocal. EXTREMITIES: Lower extremities with out edema bilaterally. Assessment and plan Nonischemic cardiomyopathy with severely depressed ejection fraction less than 35% no significant coronary artery disease by left heart cath Atrial fibrillation status post cardioversion now exhibiting atrial tachycardia Severely depressed left ventricle ejection fraction less than 35% Add digoxin to control heart rate Continue amiodarone 400 mg 3 times daily Continue beta-dong Consider LifeVest for nonischemic cardiomyopathy with severely depressed ejection fraction less than 30% Subjective 2 Subjective: Patient actually converted last night to sinus but is now in sinus tach, confirmed with EKG. Rates are still uncontrolled. LHC showed nonobstructive coronary artery disease. I did discuss life vest with the patient, but at this time, he declines. Vitals/I&O/Wt Last Vital Signs Temp 97.9 F 06/12/24 08:00 Pulse 102 H 06/12/24 08:00 Resp 16 06/12/24 08:00 BP 119/69 06/12/24 08:00 Pulse Ox 94 06/12/24 07:58 O2 Del Method Room Air 06/12/24 07:58 O2 Flow Rate 2 06/09/24 21:00 FiO2 28 06/09/24 21:00 06/11/24 06/12/24 06/12/24 22:59 06:59 14:59 Intake Total 1050 / 1390 0 / 1390 Balance 1050 / 1390 0 / 1390 Weight last 48 hrs Weight 227 lb 0.8 oz Physical Exam 2 Narrative: General: No apparent distress, healthy appearing, well nourished HENMT: normoceophalic Muskuloskeletal: Full ROM Respiratory: Normal respiratory effort, clear throughout, no use of accessory muscles Cardio: No JVD, regular rate and rhythm, S1 S2 normal, no murmurs, peripheral pulses 2+ radial palpated bilaterally GI: Normal to inspection, nondistended Extremities: Full ROM, normal, normal capillary refill, no edema Neuro: Alert and oriented x4, no focal motor deficits Psych: Affect normal, denies suicidal ideation, mental status grossly normal Skin: No rashes or lesions noted, no wounds Data 06/12/24 02:38 06/12/24 02:38 A&P Assessment and plan (1) Atrial fibrillation with RVR: (2) Acute exacerbation of CHF (congestive heart failure): (3) Transaminitis: (4) Acute kidney injury: Plan Patient has transitioned to amio 400 TID. Will add digoxin for rate control. Will need to closely monitor renal function. Patient declined life vest. PDMP PDMP Reviewed: Not Reviewed Attestations 2 Medical Necessity Statement*: Deferred to primary Coding Level of Care Code Acute Code for [facility] Diagnoses Atrial fibrillation with RVR I48.91 Acute exacerbation of CHF (congestive heart failure) I50.9 Transaminitis R74.01 Acute kidney injury N17.9
--- NOTE | 2024-06-12 11:40 | ECG_ITS ---
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 Measurements Intervals [place] Rate: 118 P: 0 SD: 0 QRS: 49 QRSD: 89 T: 0 QT: 371 QTc: 521 Interpretive Statements ATRIAL FLUTTER/TACHYCARDIA WITH RAPID VENTRICULAR RESPONSE ST ELEVATION, CONSIDER INFERIOR INJURY [MARKED ST ELEVATION W/O NORMALLY INFLECTED T-WAVE IN II/aVF] ACUTE MA Compared to ECG 06/11/2024 15:44:00 ST (T wave) deviation now present Myocardial infarct finding now present Electronically Signed On 06-12-2024 18:48:39 CDT by Wendy Alas M.D. [id number]
[2024-06-12] MEDS: digoxin 250 mcg/ml INJ 2 mL IVP (14:23)
--- NOTE | 2024-06-12 15:16 | P.PN_ITS ---
Subjective 2 Subjective: Patient was seen this morning, he is alert oriented x 3, following all commands, no chest pain, does report palpitations, heart rates in the 120s, looks like flutter on the monitor Vitals/I&O/Wt Last Vital Signs Temp 97.6 F 06/12/24 11:40 Pulse 117 H 06/12/24 11:40 Resp 18 06/12/24 11:40 BP 108/79 06/12/24 11:40 Pulse Ox 95 06/12/24 11:40 O2 Del Method Room Air 06/12/24 11:40 O2 Flow Rate 2 06/09/24 21:00 FiO2 28 06/09/24 21:00 06/12/24 06/12/24 06/12/24 06:59 14:59 22:59 Intake Total 0 / 1390 240 / 240 Balance 0 / 1390 240 / 240 Physical Exam 2 Const: COMMON NORMALS: no acute distress and patient oriented x3 Resp: COMMON NORMALS: normal respiratory effort, No retractions, No use of accessory muscles and clear to auscultation bilaterally AUSCULTATION: clear to auscultation bilaterally Cardio: COMMON NORMALS: regular rate, regular rhythm, S1 normal heart sound present and S2 normal heart sound present RATE: regular rate RHYTHM: r egular rhythm HEART SOUNDS: S1 normal heart sound present and S2 normal heart sound present GI: COMMON NORMALS: Normal to inspection, nondistended, normoactive bowel sounds present and non-tender Extremity: COMMON NORMALS: no pedal edema Neuro: COMMON NORMALS: patient oriented x3 Psych: COMMON NORMALS: mental status grossly normal Data 06/12/24 02:38 06/12/24 02:38 A&P Assessment and plan (1) Atrial fibrillation with RVR: (2) Acute exacerbation of CHF (congestive heart failure): (3) Transaminitis: (4) Acute kidney injury: Plan Acute systolic and diastolic CHF exacerbation Plan -Cardiac echo, ejection fraction 25%, global left ventricular hypokinesis, left atrial appendage - Continue p.o. Lasix -Monitor creatinine, monitor urine output, monitor potassium -Magnesium level, TSH within normal limits -Monitor respiratory status closely NSTEMI, cardiomyopathy - Currently on therapeutic Lovenox - Coronary angiography, no obstructive CAD, medically manage Atrial fibrillation with rapid ventricular response -Continue home metoprolol Status post cardioversion - Off Eliquis, on therapeutic Lovenox - Back in atrial fibrillation with rapid ventricular response, amiodarone 150 bolus followed by amiodarone drip - Will try cardioversion versus digoxin Transaminitis, likely congestive hepatopathy -With elevated bilirubin, alk phos -Alcohol level, acute hep panel, liver ultrasound no acute findings Prediabetes, A1c 6.3 Acute kidney injury, creatinine 1.1 baseline creatinine unknown, possibly cardiorenal syndrome monitor creatinine and urine output given diuresis History of sleep apnea start CPAP Full code Eliquis for DVT prophylaxis Plan for today monitor A-fib with RVR, heart rate control, heart rates remain the 120s PDMP PDMP Reviewed: Not Reviewed Attestations 2 Medical Necessity Statement*: Patient requires hospitalization for A-fib with RVR Diagnoses Atrial fibrillation with RVR I48.91 Acute exacerbation of CHF (congestive heart failure) I50.9 Transaminitis R74.01 Acute kidney injury N17.9
[2024-06-12] MEDS: pantoprazole 40 mg SDV IVP (17:31)
[2024-06-12] MEDS: MELATONIN 3 MG TABLET 9 MG PO (20:20)
[2024-06-12] MEDS: digoxin 250 mcg/ml INJ 2 mL 125 MCG IVP (20:20)
[2024-06-13] VITALS (11 sets, daily range): BP systolic 103–119; BP diastolic 68–87; PULSE 71–119; RESP 18–24; TEMP 36.4–36.9; O2SAT 93–98
[2024-06-13 00:54] LABS: Basophils # 0.1 10^3/uL (0.0-0.1); Basophils % 0.9 %; Eosinophils # 0.1 10^3/uL (0.0-0.8); Eosinophils % 2.4 %; Hematocrit 41.6 % (37-53); Lymphocytes # 1.6 10^3/uL (0.8-4.8); Lymphocytes % 28.3 %; Mean Corpuscular Hemoglobin 20.2 pg (27-33); Mean Corpuscular Volume 67.3 fl (82-101); Mean Platelet Volume 9.5 fL (7.4-10.4); Monocytes # 0.5 10^3/uL (0.2-0.9); Monocytes % 9.9 %; Neutrophils # 3.19 10^3/uL (1.8-7.7); Neutrophils % 58.1 %; Nucleated Red Blood Cells % 0 %; Platelet Count 352 10^3/cmm (157-399); Red Blood Count 6.18 10^6/uL (3.85-5.65); Red Cell Distribution Width 20.1 % (12.1-15.1); White Blood Count 5.48 10^3/uL (3.29-11.43)
[2024-06-13 01:09] LABS: Alanine Aminotransferase 74 U/L (0-41); Albumin Level 3.4 g/dL (3.5-5.2); Alkaline Phosphatase 191 U/L (40-130); Anion Gap 11.8 (5-19); Aspartate Amino Transferase 68 U/L (0-40); Blood Urea Nitrogen 27 mg/dL (8-23); Calcium 8.4 mg/dL (8.5-10.5); Carbon Dioxide 32 mmol/L (22-29); Chloride 96 mmol/L (98-107); Globulin 3.2 g/dL (1.3-4.6); Glomerular Filtration Rate 59.9 mL/min (90-130); Glucose 103 mg/dL (65-115); Osmolality Calculated 287 mOsm/kg (285-295); Potassium 3.8 mmol/L (3.5-5.1); Sodium 136 mmol/L (136-145); Total Bilirubin 1.3 mg/dL (0.15-1.2); Total Protein 6.6 g/dL (6.6-8.7)
[2024-06-13 01:26] LABS: Digoxin 0.7 ng/mL (0.6-1.2)
[2024-06-13 01:32] LABS: NT Pro B Type Natriuretic Pept 2758 pg/mL (0-125)
[2024-06-13] MEDS: digoxin 250 mcg/ml INJ 2 mL 125 MCG IVP (01:58)
--- NOTE | 2024-06-13 08:44 | ECG_ITS ---
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 Measurements Intervals [place] Rate: 94 P: 0 CO: 0 QRS: 22 QRSD: 104 T: 31 QT: 432 QTc: 540 Interpretive Statements ATRIAL FLUTTER/TACHYCARDIA PROLONGED QT INTERVAL Compared to ECG 06/12/2024 11:47:32 Prolonged QT interval now present ST (T wave) deviation no longer present Myocardial infarct finding no longer present Electronically Signed On 06-13-2024 21:32:00 CDT by Wendy Alas M.D. [email or web address] [id number]
[2024-06-13] MEDS: fluoxetine 10 mg Capsule 20 MG PO (08:56)
[2024-06-13] MEDS: amiodarone 200 mg Tablet 400 MG PO ×3 (08:56→20:41)
[2024-06-13] MEDS: FUROsemide 40 mg Tablet PO (08:57)
[2024-06-13] MEDS: metoprolol succinate ER (24 HR) 100 mg Tablet 200 MG PO (08:57)
[2024-06-13] MEDS: atorvastatin 40 mg Tablet PO (08:57)
[2024-06-13] MEDS: digoxin 125 mcg Tablet PO (08:57)
[2024-06-13 09:36] LABS: Magnesium 2.5 mg/dL (1.7-2.3)
--- NOTE | 2024-06-13 10:21 | PC.SOCIAL ---
IMM Update pg 2 of IMM Updated and reviewed w/ patient. Copy provided and copy dated, initialed and placed in chart.
--- NOTE | 2024-06-13 14:04 | ANES.PREANE2 ---
Pre-Anesthetic Assessment Height/Weight: Height 6 ft Weight 227 lb Temp Pulse Resp BP Pulse Ox O2 Del Method O2 Flow Rate 97.9 F 82 18 117/83 95 Room Air 2 06/13/24 12:00 06/13/24 12:00 06/13/24 12:00 06/13/24 12:00 06/13/24 12:00 06/13/24 12:00 06/12/24 21:00 FiO2 28 06/09/24 21:00 Preop Diagnosis: A-fib with RVR Operation Date: 06/11/24 17:00 Proposed Procedures p Cardiac Catheterization(Left) - Roslyn Monique MD Social No alcohol and No tobacco Exam alert, oriented x 3 and clear to auscultation bilaterally Airway Submandibular: within normal limits Cervical ROM: within normal limits Mallampati: Class III Dentition: full Anesthetic Plan ASA status: 4 Anesthesia: MAC Other: No prior issues with anesthesia Patient admitted on 06/05/2024 for A-fib with RVR History of hypertension on lisinopril and metoprolol Prior stents placed, on chronic Eliquis. Last taken 06/05/2024 Labs reviewed from today and acceptable for procedure. proBNP [id number] Patient does not wear any home O2 but is currently on nasal cannula PRABHJOT showing EF 25% Plan for MAC anesthesia Medications/Allergies Home Medications ?Medication ?Instructions ?Recorded ?Confirmed ?Last Taken ?Type amoxicillin 500 mg-potassium 1 tab PO BID 06/05/24 06/05/24 06/05/24 History clavulanate 125 mg tablet (Augmentin) apixaban 5 mg tablet (Eliquis) 5 mg PO BID 06/05/24 06/05/24 06/05/24 History atorvastatin 40 mg tablet 40 mg PO DAILY 06/05/24 06/05/24 06/05/24 History furosemide 40 mg tablet 40 mg PO BID 06/05/24 06/05/24 06/05/24 History lisinopril 20 mg tablet 20 mg PO DAILY 06/05/24 06/05/24 06/05/24 History metoprolol succinate 200 mg 200 mg PO DAILY 06/05/24 06/05/24 06/05/24 History tablet,extended release 24 hr sildenafil 100 mg tablet 100 mg PO DAILY 06/05/24 06/05/24 Unknown History tirzepatide 12.5 mg/0.5 mL 12.5 mg SUBCUT Q7D 06/05/24 06/05/24 Unknown History subcutaneous pen injector (Nga) Allergies Allergy/AdvReac Type Severity Reaction Status Date / Time No Known Allergies Allergy Verified 06/05/24 13:14 Current Medications Generic Name Dose Route Start Last Admin Trade Name Freq PRN Reason Stop Dose Admin Acetaminophen 650 mg 06/05/24 15:41 06/05/24 23:26 Acetaminophen 325 Mg Tablet PO 650 mg Q6H PRN Administration Mild/Mod Pain Or Temp >/= 101 Alprazolam 0.25 mg 06/06/24 10:24 06/11/24 07:35 Alprazolam 0.5 Mg Tablet PO 0.25 mg TID PRN Administration ANXIETY Amiodarone HCl 400 mg 06/12/24 09:00 06/13/24 08:56 Amiodarone 200 Mg Tablet PO 400 mg TID JAMES Administration Atorvastatin Calcium 40 mg 06/06/24 09:00 06/13/24 08:57 Atorvastatin 40 Mg Tablet PO 40 mg DAILY JAMES Administration Digoxin 125 mcg 06/13/24 09:00 06/13/24 08:57 Digoxin 125 Mcg Tablet PO 125 mcg DAILY JAMES Administration Enoxaparin Sodium 110 mg 06/10/24 08:00 06/13/24 08:57 Enoxaparin 120 Mg/0.8 Ml Syringe SUBCUT Not Given Q24H JAMES Fluoxetine HCl 20 mg 06/06/24 10:25 06/13/24 08:56 Fluoxetine 10 Mg Capsule PO 20 mg DAILY JAMES Administration Furosemide 40 mg 06/10/24 08:00 06/13/24 08:57 Furosemide 40 Mg Tablet PO 40 mg DAILY@0800 JAMES Administration Hydrocortisone 1 applic 06/09/24 22:26 06/09/24 23:04 Hydrocortisone 2.5% Cream 28 Gm TOPICAL 1 applic QID PRN Administration ITCHING Amiodarone HCl/Dextrose 360 mg in 200 mls @ 0 mls/hr 06/11/24 09:00 06/11/24 15:56 Nexterone IV Infused .Q0M JAMES Titration Protocol Per Protocol Melatonin 9 mg 06/05/24 22:45 06/12/24 20:20 Melatonin 3 Mg Tablet PO 9 mg BEDTIME JAMES Administration Metoprolol Succinate 200 mg 06/06/24 09:00 06/13/24 08:57 Metoprolol Succinate Er (24 Hr) 100 Mg Tablet PO 200 mg DAILY JAMES Administration Pantoprazole Sodium 40 mg 06/05/24 15:41 06/12/24 17:31 Pantoprazole 40 Mg Sdv IVP 40 mg Q24H JAMES Administration Trazodone HCl 50 mg 06/05/24 22:25 06/05/24 23:25 Trazodone 50 Mg Tablet PO 50 mg BEDTIME PRN Administration INSOMNIA PFSH Anesthesia Medical History (Updated 06/05/24 @ 15:44 by Abdiel Bishop MD) History of cardioversion History of CAD (coronary artery disease) History of atrial fibrillation Surgical History (Updated 06/05/24 @ 15:42 by Abdiel Bishop MD) History of heart artery stent History of cholecystectomy Family History (Updated 06/05/24 @ 15:43 by Abdiel Bishop MD) Mother CAD (coronary artery disease) Father CAD (coronary artery disease) Social History (Updated 06/05/24 @ 15:43 by Adbiel Bishop MD) Smoking and tobacco/nicotine status: never used tobacco/nicotine Alcohol intake: never Substance/Drug Use: never Data Anesthesia 06/13/24 00:45 06/13/24 00:45 Short CBC 06/12/24 06/13/24 Range/Units 02:38 00:45 WBC 5.58 5.48 (3.29-11.43) 10^3/uL Hgb 12.40 12.50 (11.27-16.99) g/dL Hct 41.0 41.6 (37-53) % MCV 68.9 L 67.3 L (82-101) fl Plt Count 339 352 (157-399) 10^3/cmm Neut % (Auto) 53.7 58.1 % Neut # (Auto) 3.00 3.19 (1.8-7.7) 10^3/uL BMP 06/12/24 06/13/24 02:38 00:45 Sodium 137 136 Potassium 4.1 3.8 Chloride 96 L 96 L Carbon Dioxide 33 H 32 H BUN 23 27 H Creatinine 1.2 1.2 Glucose 83 103 Calcium 8.7 8.4 L Cardiac Enzymes 06/12/24 06/13/24 Range/Units 02:38 00:45 NT-Pro-B Natriuret Pep 2027 H 2758 H (0-125) pg/mL Liver Function 06/13/24 Range/Units 00:45 Total Bilirubin 1.3 H (0.15-1.2) mg/dL AST 68 H (0-40) U/L ALT 74 H (0-41) U/L Alkaline Phosphatase 191 H (40-130) U/L Albumin 3.4 L (3.5-5.2) g/dL Cardiac Studies: Transesophageal Echocardiogram 06/08/24
--- NOTE | 2024-06-13 14:26 | P.PN_ITS ---
Subjective 2 Medications: Medication Review Details: Patient was seen this morning, he is alert oriented x 3, following all commands, denies any fevers, no chills, Vitals/I&O/Wt Last Vital Signs Temp 97.9 F 06/13/24 12:00 Pulse 82 06/13/24 12:00 Resp 18 06/13/24 12:00 BP 117/83 06/13/24 12:00 Pulse Ox 95 06/13/24 12:00 O2 Del Method Room Air 06/13/24 12:00 O2 Flow Rate 2 06/12/24 21:00 FiO2 28 06/09/24 21:00 06/12/24 06/13/24 06/13/24 22:59 06:59 14:59 Intake Total 520 / 760 400 / 1160 360 / 360 Balance 520 / 760 400 / 1160 360 / 360 Weight last 48 hrs Weight 102.965 kg Physical Exam 2 Const: COMMON NORMALS: no acute distress and patient oriented x3 Resp: COMMON NORMALS: normal respiratory effort, No retractions, No use of accessory muscles and clear to auscultation bilaterally AUSCULTATION: clear to auscultation bilaterally Cardio: COMMON NORMALS: S1 normal heart sound present and S2 normal heart sound present RATE: tachycardic RHYTHM: abnormal rhythm HEART SOUNDS: S 1 normal heart sound present and S2 normal heart sound present GI: COMMON NORMALS: Normal to inspection, nondistended, normoactive bowel sounds present and non-tender Extremity: COMMON NORMALS: no pedal edema Neuro: COMMON NORMALS: patient oriented x3 Psych: COMMON NORMALS: mental status grossly normal Data 06/13/24 00:45 06/13/24 00:45 A&P Assessment and plan (1) Atrial fibrillation with RVR: (2) Acute exacerbation of CHF (congestive heart failure): (3) Transaminitis: (4) Acute kidney injury: Plan Acute systolic and diastolic CHF exacerbation Plan -Cardiac echo, ejection fraction 25%, global left ventricular hypokinesis, left atrial appendage - Continue p.o. Lasix -Monitor creatinine, monitor urine output, monitor potassium -Magnesium level, TSH within normal limits -Monitor respiratory status closely NSTEMI, cardiomyopathy - Switch to Eliquis - Coronary angiography, no obstructive CAD, medically manage Atrial fibrillation with rapid ventricular response -Continue home metoprolol Status post cardioversion - Switch to Eliquis - Back in atrial fibrillation with rapid ventricular response, amiodarone 150 bolus followed by amiodarone drip - Status post digoxin # Plan for cardioversion this afternoon Transaminitis, likely congestive hepatopathy, monitor as patient is on amiodarone -With elevated bilirubin, alk phos -Alcohol level, acute hep panel, liver ultrasound no acute findings Prediabetes, A1c 6.3 Acute kidney injury, creatinine 1.1 baseline creatinine unknown, possibly cardiorenal syndrome monitor creatinine and urine output given diuresis History of sleep apnea start CPAP Full code Eliquis for DVT prophylaxis Plan for today monitor A-fib with RVR, heart rate control, heart rates remain the 120s, planning cardioversion PDMP PDMP Reviewed: Not Reviewed Attestations 2 Medical Necessity Statement*: Patient requires hospitalization for atrial fibrillation, requiring cardioversion Diagnoses Atrial fibrillation with RVR I48.91 Acute exacerbation of CHF (congestive heart failure) I50.9 Transaminitis R74.01 Acute kidney injury N17.9
--- NOTE | 2024-06-13 14:46 | P.PN_ITS ---
<Statement entered by Roslyn Monique MD - 06/16/24 10:51> Patient was evaluated and cared for in conjunction with an advanced practice practitioner. I personally examined the patient and reviewed the chart and all pertinent data including imaging, telemetry, and laboratory results. I discussed the patient in detail with the advanced practice practitioner. Please see their note for complete H&P testing result and agreed upon plan of care for the patient. Subjective 2 Subjective: Patient doing well today. He appears to be in a flutter/A-fib with rates uncontrolled. He was loaded with digoxin yesterday and started on oral digoxin. Creatinine is still stable at 1.2. He denies any chest pain or shortness of breath. He keeps trying to go back in and out of sinus rhythm and A- fib/flutter. Vitals/I&O/Wt Last Vital Signs Temp 97.9 F 06/13/24 12:00 Pulse 82 06/13/24 12:00 Resp 18 06/13/24 12:00 BP 117/83 06/13/24 12:00 Pulse Ox 95 06/13/24 12:00 O2 Del Method Room Air 06/13/24 12:00 O2 Flow Rate 2 06/12/24 21:00 FiO2 28 06/09/24 21:00 06/12/24 06/13/24 06/13/24 22:59 06:59 14:59 Intake Total 520 / 760 400 / 1160 360 / 360 Balance 520 / 760 400 / 1160 360 / 360 Weight last 48 hrs Weight 227 lb Physical Exam 2 Narrative: General: No apparent distress, healthy appearing, well nourished HENMT: normoceophalic Muskuloskeletal: Full ROM Respiratory: Normal respiratory effort, clear throughout, no use of accessory muscles Cardio: No JVD, irregularly irregular rate and rhythm, S1 S2 normal, no murmurs, peripheral pulses 2+ radial palpated bilaterally GI: Normal to inspection, nondistended Extremities: Full ROM, normal, normal capillary refill, no edema Neuro: Alert and oriented x4, no focal motor deficits Psych: Affect normal, denies suicidal ideation, mental status grossly normal Skin: No rashes or lesions noted, no wounds Data 06/13/24 00:45 06/13/24 00:45 A&P Assessment and plan (1) Atrial fibrillation with RVR: (2) Acute exacerbation of CHF (congestive heart failure): (3) Transaminitis: (4) Acute kidney injury: Plan Plan is for cardioversion this evening around 4:30. Will continue amiodarone 400 3 times daily as well as digoxin, metoprolol at 200 mg daily. Continue Eliquis for stroke prevention. Patient agrees to the plan of care. PDMP PDMP Reviewed: Not Reviewed Attestations 2 Medical Necessity Statement*: Deferred to primary. Coding Level of Care Code Acute Code for [facility] Diagnoses Atrial fibrillation with RVR I48.91 Acute exacerbation of CHF (congestive heart failure) I50.9 Transaminitis R74.01 Acute kidney injury N17.9
--- NOTE | 2024-06-13 16:49 | ECG_ITS ---
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 Measurements Intervals Joseph Rate: 66 P: -1 VA: 188 QRS: 25 QRSD: 92 T: 21 QT: 428 QTc: 450 Interpretive Statements SINUS RHYTHM Compared to ECG 06/13/2024 11:17:51 Atrial flutter no longer present Prolonged QT interval no longer present Electronically Signed On 06-13-2024 21:29:39 CDT by Wendy Alas M.D. [email or web address]
[2024-06-13] MEDS: pantoprazole 40 mg SDV IVP (18:17)
[2024-06-13] MEDS: morphine 4 mg/mL SDV 1 mL 2 MG IVP ×2 (19:06→23:02)
[2024-06-13] MEDS: MELATONIN 3 MG TABLET 9 MG PO (20:41)
[2024-06-13] MEDS: apixaban 5 mg Tablet PO (20:41)
[2024-06-14] VITALS: BP 114/69; PULSE 62; RESP 13; O2SAT 95
[2024-06-14] MEDS: temazepam 15 mg Capsule PO (03:13)
[2024-06-14 03:19] VITALS: BP 115/62; PULSE 61; RESP 12; TEMP 36.8; O2SAT 92
[2024-06-14 03:44] LABS: Basophils % 0.7 %; Eosinophils # 0.2 10^3/uL (0.0-0.8); Eosinophils % 2.8 %; Lymphocytes # 1.3 10^3/uL (0.8-4.8); Lymphocytes % 21.6 %; Mean Corpuscular HGB Conc 29.7 g/dL (30-55); Mean Corpuscular Hemoglobin 20.7 pg (27-33); Mean Corpuscular Volume 69.6 fl (82-101); Mean Platelet Volume 9.4 fL (7.4-10.4); Monocytes # 0.6 10^3/uL (0.2-0.9); Monocytes % 9.7 %; Neutrophils # 3.94 10^3/uL (1.8-7.7); Neutrophils % 64.9 %; Nucleated Red Blood Cells % 0 %; Platelet Count 309 10^3/cmm (157-399); Red Blood Count 5.46 10^6/uL (3.85-5.65); Red Cell Distribution Width 20.1 % (12.1-15.1); White Blood Count 6.07 10^3/uL (3.29-11.43)
[2024-06-14 04:12] LABS: Alanine Aminotransferase 68 U/L (0-41); Albumin Level 3.5 g/dL (3.5-5.2); Alkaline Phosphatase 178 U/L (40-130); Anion Gap 13.2 (5-19); Aspartate Amino Transferase 63 U/L (0-40); Blood Urea Nitrogen 23 mg/dL (8-23); Calcium 8.3 mg/dL (8.5-10.5); Carbon Dioxide 30 mmol/L (22-29); Chloride 101 mmol/L (98-107); Creatinine Clr Calc Pharmacy 71.0905; Glomerular Filtration Rate 59.9 mL/min (90-130); Glucose 115 mg/dL (65-115); Osmolality Calculated 295 mOsm/kg (285-295); Potassium 4.2 mmol/L (3.5-5.1); Sodium 140 mmol/L (136-145); Total Bilirubin 1.4 mg/dL (0.15-1.2); Total Protein 6.5 g/dL (6.6-8.7)
[2024-06-14 04:34] LABS: NT Pro B Type Natriuretic Pept 1554 pg/mL (0-125)
[2024-06-14 05:18] VITALS: PULSE 63
[2024-06-14 07:59] VITALS: BP 122/79; PULSE 62; RESP 24; TEMP 37; O2SAT 95
[2024-06-14] MEDS: apixaban 5 mg Tablet PO (09:55)
[2024-06-14] MEDS: metoprolol succinate ER (24 HR) 100 mg Tablet 200 MG PO (09:55)
[2024-06-14] MEDS: atorvastatin 40 mg Tablet PO (09:55)
[2024-06-14] MEDS: amiodarone 200 mg Tablet 400 MG PO (09:55)
[2024-06-14] MEDS: FUROsemide 40 mg Tablet PO (09:55)
[2024-06-14] MEDS: fluoxetine 10 mg Capsule 20 MG PO (09:55)
--- NOTE | 2024-06-14 11:01 | P.DS_ITS ---
Discharge Providers Date of Admission: 06/05/24 14:50 Date of Discharge: June 14, 2024 Attending Provider at Admission: Abdiel Bishop MD Attending Provider at Discharge: Abidel Bishop MD Diagnoses at Discharge Discharge Diagnosis (1) Atrial fibrillation with RVR: Status: Acute (2) Acute exacerbation of CHF (congestive heart failure): Status: Acute (3) Transaminitis: Status: Acute (4) Acute kidney injury: Status: Acute Reason for Visit Reason for Visit: [facility] [place] sent, fluid build up, A Fib Hospital Course Hospital Course Kamron Cook is a 68 year old male with a past medical history of atrial fibrillation on Eliquis, requiring cardioversion in the past, hypertension, diastolic CHF, history of CAD requiring 2 stents, history of prediabetes, jagjit milly from [facility] [facility], 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 Patient tells me that he is originally from [place], he has been a lot of stress recently, he just sold his house in [place], and it is under contract, but they are having issues, [place] is [place], so he he has to be to mortgages, him and his have moved here, he tells me that recently has been experiencing increased shortness of breath, increased shortness of breath with exertion, increased lower extreme edema, chest palpitations, no chest pain, he was diagnosed with a respiratory tract infection and placed on Augmentin, denies alcoholism, denies any drug use Patient was admitted to [facility] for acute systolic and diastolic CHF exacerbation, cardiac echo showed EF of 25%, global left ventricular hypokinesis, with left atrial appendage, received IV diuresis, overall clinically improved, euvolemic on discharge For patient's NSTEMI, cardiomyopathy, cardiology consulted underwent coronary angiography, no obstructive CAD, medically managed, follow-up with cardiology as outpatient For A-fib with RVR, difficult to control, on Cardizem drip, on amiodarone drip, on digoxin, required cardioversion x 2. After patient's last cardioversion he remains in normal sinus rhythm, on a tapering dose of amiodarone, metoprolol 200 once daily, follow with cardiology as outpatient. For transaminitis, likely congestive hepatopathy, follow-up liver function as outpatient through primary care DINO, monitor renal function Physical Exam Const: COMMON NORMALS: no acute distress and patient oriented x3 Neck/C-Spine: COMMON NORMALS: no JVD Resp: COMMON NORMALS: normal respiratory effort, No retractions, No use of accessory muscles and clear to auscultation bilaterally AUSCULTATION: clear to auscultation bilaterally Cardio: COMMON NORMALS: no JVD, regular rate, regular rhythm, S1 normal heart sound present and S2 normal heart sound present RATE: regular rate RHYTHM: regular rhythm HEART SOUNDS: S1 normal heart sound present and S2 normal heart sound present GI: COMMON NORMALS: Normal to inspection, nondistended, normoactive bowel sounds present and non-tender Extremity: COMMON NORMALS: no pedal edema Neuro: COMMON NORMALS: patient oriented x3 Psych: COMMON NORMALS: mental status grossly normal Discharge Data Studies Completed and Pending Completed Studies During Hospitalization Category Date Time Status [employer] request for service Routine Exams 06/11/24 10:15 Completed XR chest 1V portable [id number] Stat Exams 06/05/24 12:56 Completed CV. echo transesophageal [id number] Routine Ultrasound 06/08/24 12:41 Completed US liver [id number] Routine Ultrasound 06/05/24 15:11 Completed Pending at discharge Category Date Time Status Comprehensive Metabolic Panel AM LABS Lab 06/15/24 04:00 Ordered Radiology Impressions Chest X-Ray 06/05/24 12:56 IMPRESSION: Mild cardiomegaly. Liver Ultrasound 06/05/24 15:11 IMPRESSION: Mild hepatomegaly. Laboratory Results WBC 6.07 10^3/uL (3.29-11.43) 06/14/24 03:27 RBC 5.46 10^6/uL (3.85-5.65) 06/14/24 03:27 Hgb 11.30 g/dL (11.27-16.99) 06/14/24 03:27 Hct 38.0 % (37-53) 06/14/24 03:27 MCV 69.6 fl (82-101) L 06/14/24 03:27 MCH 20.7 pg (27-33) L 06/14/24 03:27 MCHC 29.7 g/dL (30-55) L 06/14/24 03:27 RDW 20.1 % (12.1-15.1) H 06/14/24 03:27 Plt Count 309 10^3/cmm (157-399) 06/14/24 03:27 MPV 9.4 fL (7.4-10.4) 06/14/24 03:27 Neut % (Auto) 64.9 % 06/14/24 03:27 Lymph % (Auto) 21.6 % 06/14/24 03:27 [place] % (Auto) 9.7 % 06/14/24 03:27 Eos % (Auto) 2.8 % 06/14/24 03:27 Baso % (Auto) 0.7 % 06/14/24 03:27 Reticulocyte % (Auto) 1.1 % (0.5-2.0) 06/11/24 03:55 Neut # (Auto) 3.94 10^3/uL (1.8-7.7) 06/14/24 03:27 Lymph # (Auto) 1.3 10^3/uL (0.8-4.8) 06/14/24 03:27 [place] # (Auto) 0.6 10^3/uL (0.2-0.9) 06/14/24 03:27 Eos # (Auto) 0.2 10^3/uL (0.0-0.8) 06/14/24 03:27 Baso # (Auto) 0.0 10^3/uL (0.0-0.1) 06/14/24 03:27 Nucleated RBC % (auto) 0 % 06/14/24 03:27 Nucleated RBCs # 0.0 /100WBC 06/14/24 03:27 Sodium 140 mmol/L (136-145) 06/14/24 03:27 Potassium 4.2 mmol/L (3.5-5.1) 06/14/24 03:27 Chloride 101 mmol/L (98-107) 06/14/24 03:27 Carbon Dioxide 30 mmol/L (22-29) H 06/14/24 03:27 Anion Gap 13.2 (5-19) 06/14/24 03:27 BUN 23 mg/dL (8-23) 06/14/24 03:27 Creatinine 1.2 mg/dL (0.7-1.2) 06/14/24 03:27 GFR Calculation 59.9 mL/min (90-130) L 06/14/24 03:27 Glucose 115 mg/dL (65-115) 06/14/24 03:27 Estimat Average Glucose 134 06/05/24 13:26 Hemoglobin A1c 6.3 % (4.0-6.0) H 06/05/24 13:26 Calculated Osmolality 295 mOsm/kg (285-295) 06/14/24 03:27 Calcium 8.3 mg/dL (8.5-10.5) L 06/14/24 03:27 Phosphorus 2.8 mg/dL (2.5-4.5) 06/11/24 03:55 Magnesium 2.5 mg/dL (1.7-2.3) H 06/13/24 00:45 Iron 38 ug/dL (59-158) L 06/11/24 03:55 TIBC 388 mcg/dl 06/11/24 03:55 % Saturation 9.7 % (20-50) L 06/11/24 03:55 Unsat Iron Binding 350 ug/dL (112-347) H 06/11/24 03:55 Ferritin 33 ng/mL (30-400) 06/11/24 03:55 Total Bilirubin 1.4 mg/dL (0.15-1.2) H 06/14/24 03:27 GGT 152 U/L (8-61) H 06/05/24 13:26 AST 63 U/L (0-40) H 06/14/24 03:27 ALT 68 U/L (0-41) H 06/14/24 03:27 Alkaline Phosphatase 178 U/L (40-130) H 06/14/24 03:27 Troponin T Baseline 30 ng/L (0-15) H 06/05/24 13:26 Troponin T 120 Minute 26.31 ng/L (0-15) H 06/05/24 15:23 Delta Troponin T -3.69 ABS# (0-10) L 06/05/24 15:23 Troponin T Hi Sens 6Hr 27.37 ng/L (0-15) H 06/05/24 19:43 Troponin T Hi Sens 6Hr Delta -2.63 ng/L (0-12) L 06/05/24 19:43 C-Reactive Protein 22.7 mg/L (0.0-4.9) H 06/05/24 13:26 NT-Pro-B Natriuret Pep 1554 pg/mL (0-125) H 06/14/24 03:27 Total Protein 6.5 g/dL (6.6-8.7) L 06/14/24 03:27 Albumin 3.5 g/dL (3.5-5.2) 06/14/24 03:27 Globulin 3.0 g/dL (1.3-4.6) 06/14/24 03:27 Triglycerides 74 mg/dL (0-150) 06/05/24 13:26 Cholesterol 80 mg/dL (0-200) 06/05/24 13:26 LDL Cholesterol, Calc 41 mg/dL (50-129) L 06/05/24 13:26 HDL Cholesterol 24 mg/dL (60-100) L 06/05/24 13:26 LDL/HDL Ratio 1.71 RATIO (0.00-3.22) 06/05/24 13:26 Cholesterol/HDL Ratio 3.33 mg/dL (1.0-5.00) 06/05/24 13:26 Lipase 48 U/L (13-60) 06/05/24 13:26 Procalcitonin 0.11 ng/mL (0-0.5) 06/05/24 13:26 TSH 1.97 uIU/mL (0.27-4.20) 06/05/24 13:26 Urine Color Yellow (Yellow) 06/05/24 13:57 Urine Appearance Clear (CLEAR) 06/05/24 13:57 Urine pH 5 (5-7) 06/05/24 13:57 Ur Specific [place] 1.015 (1.005-1.030) 06/05/24 13:57 Urine Protein 1+ (Negative) A 06/05/24 13:57 Urine Glucose (UA) Norm (Normal) 06/05/24 13:57 Urine Ketones Negative (Negative) 06/05/24 13:57 Urine Blood Trace (Negative) A 06/05/24 13:57 Urine Nitrate Negative (Negative) 06/05/24 13:57 Urine Bilirubin Neg (Negative) 06/05/24 13:57 Urine Urobilinogen 1 mg/dL (Negative) H 06/05/24 13:57 Ur Leukocyte Esterase Negative (Negative) 06/05/24 13:57 Urine RBC 0-2 /hpf (0-2) 06/05/24 13:57 Urine WBC 0-5 /hpf (0-5) 06/05/24 13:57 Ur Squamous Epith Cells 6-10 /hpf (0-5) 06/05/24 13:57 Amorphous Sediment Not Reportable 06/05/24 13:57 Urine Bacteria None seen /hpf (NONE) 06/05/24 13:57 Hyaline Casts 27.69 /lpf 06/05/24 13:57 Fine Granular Casts 10-15 /lpf H 06/05/24 13:57 Digoxin 0.7 ng/mL (0.6-1.2) 06/13/24 00:45 Urine Opiates Screen Negative ng/mL (Negative) 06/05/24 13:57 Ur Barbiturates Screen Negative ng/mL (Negative) 06/05/24 13:57 Ur Phencyclidine Scrn Negative ng/mL (Negative) 06/05/24 13:57 Ur Amphetamines Screen Negative ng/mL (Negative) 06/05/24 13:57 U Benzodiazepines Scrn Negative ng/mL (Negative) 06/05/24 13:57 Urine Cocaine Screen Negative ng/mL (Negative) 06/05/24 13:57 U Marijuana (THC) Screen Negative ng/mL (Negative) 06/05/24 13:57 Ethyl Alcohol < 10 mg/dL (0-10) 06/05/24 13:26 Hepatitis A IgM Ab Non-reactive (Nonreactive) 06/05/24 13:26 Hep Bs Antigen Non-reactive (Nonreactive) 06/05/24 13:26 Hep B Core IgM Ab Non-reactive (Nonreactive) 06/05/24 13:26 Hepatitis C Antibody Non-reactive (Nonreactive) 06/05/24 13:26 Vitals Last Vital Signs Temp 98.6 F 06/14/24 07:59 Pulse 62 06/14/24 07:59 Resp 24 H 06/14/24 07:59 BP 122/79 06/14/24 07:59 Pulse Ox 95 06/14/24 07:59 O2 Del Method Room Air 06/14/24 07:59 O2 Flow Rate 2 06/13/24 21:00 FiO2 28 06/09/24 21:00 Discharge Plan Discharge Patient Disposition: Home Condition: Stable Prescriptions: New furosemide 40 mg Tablet 40 mg PO DAILY@0800 30 Days Qty: 30 0RF fluoxetine 10 mg Capsule 20 mg PO DAILY 30 Days Qty: 30 0RF amiodarone [Pacerone] 200 mg Tablet 400 mg PO BID Qty: 60 0RF Rx Instructions: 400 mg twice daily for 5 days, followed by 200 mg twice daily for 5 days, then 200 mg daily potassium chloride [Klor-Con 10] 10 mEq tablet extended release 10 meq PO DAILY 30 Days Qty: 30 0RF Continued sildenafil 100 mg Tablet 100 mg PO DAILY Mounjaro 12.5 mg/0.5 mL Pen Injector 12.5 mg SUBCUT Q7D Eliquis 5 mg Tablet 5 mg PO BID 30 Days Qty: 30 0RF atorvastatin 40 mg Tablet 40 mg PO DAILY 30 Days Qty: 30 0RF metoprolol succinate 200 mg Tablet Extended Release 24 Hr 200 mg PO DAILY 30 Days Qty: 30 0RF Discontinued furosemide 40 mg Tablet 40 mg PO BID lisinopril 20 mg Tablet 20 mg PO DAILY amoxicillin-pot clavulanate [Augmentin] 500-125 mg Tablet 1 tab PO BID Discharge Orders: Discharge Order (Routine); Ordered 06/14/24 Ordered By: Abdiel Bishop Other Ambulatory Orders: MCT/Event Monitor 30 Days (Routine) Timeframe: 1 Day Facility: [facility] - Location: Radiology Ordered By: Vy Enriquez Referrals: Silvestre Morrissey MD [Physician] - 06/18/24 1:15 pm Shala Sin FNP [Nurse Practitioner] - 06/26/24 4:00 pm Discharge Diet: Cardiac Discharge Activity: Resume usual activity Patient Instructions: Heart Failure (DC), A-fib (Atrial Fibrillation) (DC), Acute Kidney Injury (DC), Transaminitis (ED), CHF Stoplight, Opioid Safety Activity Restrictions/Additional Instructions: - Please limit fluid intake to 1 L-1.5L of fluid a day - Please limit salt diet -Please monitor for chest pain or palpitations if so go to the emergency room - Monitor for swelling, if you develop increased shortness of breath, increased lower extreme edema, gain more than 3 pounds you can take an extra Lasix 40 mg with potassium for a total of 3 extra days, if after this you continue to have swelling please follow-up with primary care - Please see your primary care provider next week - Please follow-up with cardiology next week - Please have your primary care provider watch your kidney function, creatinine on discharge 1.2 - Please have your primary care provider monitor your liver function studies, AST 63, ALT 68 Discharge Attestations Time Spent in Discharge Care*: greater than 30 min Quality Metrics Clinical Quality Measures [ No reported AMI, CVA or VTE this stay] Coding Level of Care Code 52531 Total time (in minutes) for Discharge: 45 Diagnoses Atrial fibrillation with RVR I48.91 Acute exacerbation of CHF (congestive heart failure) I50.9 Transaminitis R74.01 Acute kidney injury N17.9
[2024-06-14 12:00] VITALS: BP 146/85; PULSE 63; RESP 20; TEMP 36.6; O2SAT 97
--- NOTE | 2024-06-14 13:02 | P.PN_ITS ---
<Statement entered by Roslyn Monique MD - 06/14/24 22:50> Patient was evaluated and cared for in conjunction with an advanced practice practitioner. I personally examined the patient and reviewed the chart and all pertinent data including imaging, telemetry, and laboratory results. I discussed the patient in detail with the advanced practice practitioner. Please see their note for complete H&P testing result and agreed upon plan of care for the patient. Patient is feeling much better status post cardioversion remains in sinus rhythm GENERAL: Patient is alert, awake and oriented x3. HEART: Regular S1 and S2. No murmur, rub or gallop. LUNGS: Clear to auscultate bilaterally. CENTRAL NERVOUS SYSTEM: Grossly nonfocal. EXTREMITIES: Lower extremities with out edema bilaterally. Assessment and plan Nonischemic cardiomyopathy with severely depressed left ventricle ejection fraction Atrial fibrillation status post cardioversion 2 sinus rhythm Severely depressed left ventricular ejection fraction Patient refused LifeVest he understands pros and cons risk benefits and would like not to wear Continue Eliquis amiodarone and beta-dong Event monitor for 30 days Follow-up in the clinic in 1 week in cardiology Subjective 2 Subjective: Patient doing well. Rate is controlled. Denies chest pain shortness of breath or palpitations. Vitals/I&O/Wt Last Vital Signs Temp 97.8 F 06/14/24 12:00 Pulse 63 06/14/24 12:00 Resp 20 H 06/14/24 12:00 BP 146/85 06/14/24 12:00 Pulse Ox 97 06/14/24 12:00 O2 Del Method Room Air 06/14/24 12:00 O2 Flow Rate 2 06/13/24 21:00 FiO2 28 06/09/24 21:00 06/13/24 06/14/24 06/14/24 22:59 06:59 14:59 Intake Total 520 / 880 200 / 1080 480 / 480 Balance 520 / 880 200 / 1080 480 / 480 Weight last 48 hrs Weight 232 lb 1.6 oz Weight 227 lb Physical Exam 2 Narrative: General: No apparent distress, healthy appearing, well nourished HENMT: normoceophalic Muskuloskeletal: Full ROM Respiratory: Normal respiratory effort, clear throughout, no use of accessory muscles Cardio: No JVD, i regular rate and rhythm, S1 S2 normal, no murmurs, peripheral pulses 2+ radial palpated bilaterally GI: Normal to inspection, nondistended Extremities: Full ROM, normal, normal capillary refill, trace edema bilateral lower extremities Neuro: Alert and oriented x4, no focal motor deficits Psych: Affect normal, denies suicidal ideation, mental status grossly normal Skin: No rashes or lesions noted, no wounds Data 06/14/24 03:27 06/14/24 03:27 A&P Assessment and plan (1) Atrial fibrillation with RVR: (2) Acute exacerbation of CHF (congestive heart failure): (3) Transaminitis: (4) Acute kidney injury: Plan Recommend patient continue amiodarone 400 twice daily x 1 week then decrease to 400 daily x 1 week then 200 daily then on. Patient to be seen in the clinic in 7 days. Patient to be discharged on event monitor. He declined LifeVest. On an outpatient basis patient to be considered to start goal-directed medical therapy such as Entresto. Will need to closely watch liver function with the amiodarone. He will continue lasix 40 and was educated to weight daily and if gains 3 pounds in a day or develops worsening swelling to take extra dose of lasix. He will be on Eliquis 5 twice daily as well as metoprolol 200 daily. May be discharged from cardiology standpoint. PDMP PDMP Reviewed: Not Reviewed Attestations 2 Medical Necessity Statement*: Deferred to primary. Coding Level of Care Code Acute Code for [facility] Fwd Diagnoses Atrial fibrillation with RVR I48.91 Acute exacerbation of CHF (congestive heart failure) I50.9 Transaminitis R74.01 Acute kidney injury N17.9
[2024-06-14 14:41] VITALS: BP 114/70; PULSE 67; O2SAT 96
--- NOTE | 2024-06-14 14:52 | PC.NURSE ---
Home meds pt stated that he is on home med Testosterone cream and takes anastrozole orally once a week for his ED. Notified Dr Bishop via telephone. order to hold Anastrozole until he sees his primary doctor and can continue his testosterone cream. Pt informed and notified on these concerns. Pt verbalizes understanding.
--- NOTE | 2024-06-14 14:55 | PC.NURSE ---
Discharge Note Patient discharged to home accompanied by cecy. Discharge instructions reviewed with patient and/or denial management representative. Mobile pharmacy medications and/or prescriptions provided. Belongings/home medications returned. Concerns and questions answered. Holter monitor applied prior to discharge.
== END 2024-06-14 14:47 | disposition home or self-care (01) | DRG 280 ==
LOC: ER 14:43 → CSU 14:50
PROVIDERS: Internal Medicine Cardiovascular Disease; Nurse Practitioner Family; Admitting Provider Family Medicine; Emergency Provider Emergency Medicine; Visit Provider Family Medicine
PROC: B2111ZZ Fluoroscopy of Multiple Coronary Arteries using Low Osmolar Contrast (ICD-10-PCS; principal; 2024-06-11 17:00)
DX: I11.0 Hypertensive heart disease with heart failure (principal); I50.21 Acute systolic (congestive) heart failure; I21.4 Non-ST elevation (NSTEMI) myocardial infarction; N17.9 Acute kidney failure, unspecified; I48.91 Unspecified atrial fibrillation; I25.10 Atherosclerotic heart disease of native coronary artery without angina pectoris; Z95.5 Presence of coronary angioplasty implant and graft; I42.8 Other cardiomyopathies; Z79.01 Long term (current) use of anticoagulants; Z79.85 Long-term (current) use of injectable non-insulin antidiabetic drugs; R73.03 Prediabetes; K76.1 Chronic passive congestion of liver; I08.1 Rheumatic disorders of both mitral and tricuspid valves
CPT/HCPCS: 36415; 71045; 76705; 80048; 80053; 80061; 80074; 80162; 80306; 80307; 81001; 82728; 82977; 83036; 83540; 83550; 83690; 83735; 83880; 84100; 84145; 84443; 84484; 85025; 85045; 86140; 93005; 93312; 93320; 93325; 93454; 94660; 94664; 96365; 96372; 96374; 96375; 96376; 99152; 99153; 99285; A4222; A9270; C1769; C1887; C1894; J0283; J1160; J1200; J1644; J1650; J1940; J2250; J2270; J2470; J2704; J3010; J3490; J7030; J9999; Q9967

== ENCOUNTER → 2024-06-26 16:20 | Outpatient (BNVA) | payer MEDICARE, OTHER, SELFPAY | PROVIDERS: PCP Family Medicine; Visit Provider Nurse Practitioner Family | DX: I48.20 Chronic atrial fibrillation, unspecified (principal); Z79.01 Long term (current) use of anticoagulants; Z09 Encounter for follow-up examination after completed treatment for conditions other than malignant neoplasm; I50.9 Heart failure, unspecified; N17.9 Acute kidney failure, unspecified; I25.10 Atherosclerotic heart disease of native coronary artery without angina pectoris; Z95.5 Presence of coronary angioplasty implant and graft | CPT/HCPCS: 93005; 99214 ==

== ENCOUNTER 2024-07-13 06:12 | Emergency (ER) | payer MEDICARE, OTHER, SELFPAY ==
[2024-07-13] VITALS (24 sets, daily range): BP systolic 41–150; BP diastolic 30–111; PULSE 50–92; RESP 11–21; TEMP 35.1; O2SAT 75–100; BMI 29.5
--- NOTE | 2024-07-13 06:15 | XRR_ITS ---
PROCEDURE INFORMATION: Exam: XR Chest Exam date and time: 07/13/2024 6:33 AM Age: 68 years old Clinical indication: Other: Weakness TECHNIQUE: Imaging protocol: Radiologic exam of the chest. Views: 1 view. COMPARISON: CR XR chest 1V portable [id number] 06/05/2024 1:16 PM FINDINGS: Lungs: No definite CHF/pulmonary edema. Mild left lower lung opacities could represent atelectasis and/or pneumonitis. Please correlate clinically. Visible lungs otherwise appear essentially clear. Pleural spaces: No visible pneumothorax. No definite pleural fluid. Heart/Mediastinum: Moderate cardiomegaly, essentially stable. Diaphragm: As before, there is some elevation of the left hemidiaphragm. Bones/joints: No significant acute finding. XR/XR chest 1V portable [id number] IMPRESSION: 1. Moderate cardiomegaly. 2. No definite CHF/pulmonary edema. 3. Other findings discussed above.
--- NOTE | 2024-07-13 06:18 | ECG_ITS ---
[facility] Date: 2024-07-13 Pat Name: Kamron Cook Department: Room: Gender: Male Team Facilitator: : 1955 Requested By: Samia Smith Order Number: [id number] Leslie MD: Hammad Martinez M.D. Measurements Intervals [place] Rate: 60 P: 34 [place]: 180 QRS: 66 QRSD: 93 T: 66 QT: 495 QTc: 495 Interpretive Statements SINUS RHYTHM PROLONGED QT INTERVAL Compared to ECG 06/26/2024 16:26:09 Prolonged QT interval now present Sinus bradycardia no longer present ST (T wave) deviation no longer present Electronically Signed On 07-13-2024 13:32:49 CDT by Hammad Martinez M.D. [email or web address]
[2024-07-13] MEDS: sodium chloride 0.9% 1,000 ML 999 ML IV ×2 (06:22→06:23)
--- NOTE | 2024-07-13 06:22 | W.ED.SYNCOPE ---
HPI - Syncope General: Chief Complaint: Syncope Stated Complaint: Near syncope Time Seen by Provider: 07/13/24 06:13 History of Present Illness: 68-year-old man with a history of hypertension, atrial fibrillation, chronic anticoagulation on Eliquis, coronary artery disease status post stents who presents emergency room by ambulance with multiple syncopal episodes. He says he woke up this morning and went to get some coffee and suddenly became very lightheaded. He had multiple syncopal episodes. EMS reported normal blood pressure but severe diaphoresis. On presentation here he is hypotensive and hypothermic. He says he feels quite weak. No chest pain. No known fevers. He says he has had multiple episodes of diarrhea. Left upper quadrant abdominal pain. No altered mental status. No focal motor deficits. Related Data Home Medications ?Medication ?Instructions ?Recorded ?Confirmed sildenafil 100 mg tablet 100 mg PO DAILY 06/05/24 07/13/24 tirzepatide 12.5 mg/0.5 mL 12.5 mg SUBCUT Q7D 06/05/24 07/13/24 subcutaneous pen injector (Nga) albuterol sulfate 90 mcg/actuation 2 puff inhalation Q4H PRN 07/13/24 07/13/24 aerosol inhaler Shortness Of Breath Or Wheezing testosterone 2 pump topical DAILY 07/13/24 07/13/24 Previous Rx's ?Medication ?Instructions ?Recorded amiodarone 200 mg tablet (Pacerone) 200 mg PO QDAY #90 tabs 06/26/24 apixaban 5 mg tablet (Eliquis) 5 mg PO BID #180 tabs 06/26/24 atorvastatin 40 mg tablet 40 mg PO DAILY #90 tabs 06/26/24 fluoxetine 10 mg capsule 20 mg (2 x 10 mg) PO DAILY #180 06/26/24 caps furosemide 40 mg tablet 40 mg PO DAILY@0800 #90 tabs 06/26/24 metoprolol succinate 200 mg 200 mg PO DAILY #90 tabs 06/26/24 tablet,extended release 24 hr potassium chloride 10 mEq 10 meq PO DAILY #90 tabs 07/11/24 tablet,extended release (Klor-Con) Allergies Allergy/AdvReac Type Severity Reaction Status Date / Time No Known Allergies Allergy Verified 06/26/24 15:42 Review of Systems Narrative: Constitutional symptoms: Negative except as documented in HPI. Skin symptoms: Negative except as documented in HPI. Eye symptoms: Negative except as documented in HPI. ENMT symptoms: Negative except as documented in HPI. Respiratory symptoms: Negative except as documented in HPI. Cardiovascular symptoms: Negative except as documented in HPI. Gastrointestinal symptoms: Negative except as documented in HPI. Genitourinary symptoms: Negative except as documented in HPI. Musculoskeletal symptoms: Negative except as documented in HPI. Neurologic symptoms: Negative except as documented in HPI. Psychiatric symptoms: Negative except as documented in HPI. Endocrine symptoms: Negative except as documented in HPI. PFSH ED PFSH: Medical History History of cardioversion History of CAD (coronary artery disease) History of atrial fibrillation Surgical History History of heart artery stent History of cholecystectomy Family History Mother CAD (coronary artery disease) Father CAD (coronary artery disease) Social History Smoking and tobacco/nicotine status: never used tobacco/nicotine Alcohol intake: never Substance/Drug Use: never Physical Exam Narrative: EXAM NARRATIVE: General: Alert, appears somewhat ill Skin: Warm, pale, diaphoretic Head: Normocephalic, atraumatic. Neck: Supple, trachea midline. Eye: Extraocular movements are intact. Ears, nose, mouth and throat: mucosa moist. Cardiovascular: Regular, Normal peripheral perfusion. Respiratory: Lungs are clear to auscultation, respirations are non-labored, breath sounds are equal, Symmetrical chest wall expansion. Gastrointestinal: Soft, some diffuse upper abdominal tenderness to palpation, Non distended Musculoskeletal: Normal ROM, no deformity. Neurological: Alert and oriented, No focal neurological deficit observed. Psychiatric: Cooperative, appropriate mood & affect. Course Vital Signs: Vital signs: Vital Signs Temperature 95.1 F L 07/13/24 06:14 Pulse Rate 61 07/13/24 09:11 Respiratory Rate 15 07/13/24 09:11 Blood Pressure 84/55 07/13/24 09:11 Pulse Oximetry 100 07/13/24 09:11 Oxygen Delivery Me thod Nasal Cannula 07/13/24 09:11 Oxygen Flow Rate 2 07/13/24 09:11 MDM - Syncope Medical Decision Making Medical decision making: Differential diagnosis including but not limited to and based on the above HPI, review of systems and physical exam in this patient with syncope: Vasovagal, orthostatics hypotension, cardiac dysrhythmia, myocardial infarction, infection and hypotension, Orders placed to evaluate differential diagnosis based on the above differential, HPI and physical exam EKG: Time 6:18 AM. Rate 60. Normal sinus rhythm, No ST-T changes, no ectopy, long QT, This was reviewed and interpreted by myself the ER physician at 6:22 AM Chest x-ray: No acute process. Elevated left hemidiaphragm. No infiltrate. No pneumothorax. This was reviewed and interpreted by myself the emergency room physician. I also reviewed the radiology report. Lab Review: Laboratory results were reviewed and interpreted by myself the emergency room physician. Initial hemoglobin was 11. White count was not elevated. Lactate was up at 5. BUN and creatinine were 16 and 1.2. Patient appeared septic being hypotensive and not having any active GI bleeding. However CT scan was done that showed some intraperitoneal hemorrhage and repeat hemoglobin was done and his hemoglobin had dropped to 4.8. CT of the chest abdomen pelvis with contrast: Moderate volume hemoperitoneum. This likely does represent blood as the patient has dropped his hemoglobin from 10.5-4.8. This was reviewed and interpreted by myself the emergency room physician. I also reviewed the radiology report. Radiology recommends CT angiogram. I feel like this would best be done upon transfer to tertiary care center. I reviewed the patient's medical record. Reexamination: Throughout the patient's stay I have been in and out of the room talking with the and examining the patient. He has had extremely low blood pressures. At the point it was discovered that he was not septic but rather in shock from blood loss 2 stat units of blood were ordered and 2 more units with FFP were ordered as well. He has been requiring Levophed at near maximal dosing and epinephrine drips. He has had periods where he has become unconscious but maintained a pulse. This has been when his blood pressure has been low. Necessity for transfer: Patient has intra-abdominal bleeding without unknown source. He likely will need vascular or interventional radiology both of which are not available. Also given the considerable amount of blood he has lost we do not have sufficient blood product in this facility either. Given severity of illness time is crucial so patient is being flown Consultation: I spoke with general surgery, Dr. Jefferson. He recommends transfer as well given we likely do not have the interventional subspecialties needed or necessary blood products. Consultation: I spoke with emergency room physician at [facility] in [place] who is excepted the patient to the emergency room there. Dr. Jung was consulted with vascular and agrees that the patient can be transferred. Assessment and plan: Intraperitoneal bleed Circulatory shock Hypotension Acute blood loss anemia ?Patient initially appeared septic. Was treated as such. -3 L normal saline bolus. 30 mL/kg -Broad-spectrum antibiotics were administered. Meropenem and Zyvox -Sepsis quality measures. -Lactic acid with a reflex was ordered. -Blood cultures were ordered. ?At the time it was discovered that he was bleeding in his abdomen repeat hemoglobin was ordered that showed a hemoglobin drop to 4.8. 2 units stat O- blood were given immediately. 2 more units of been ordered. Andexxa given as well. Immediate transfer emergency room to emergency room was initiated. -I discussed the patient with the accepting physician on-call. - Discussed findings and plan with patient. Answered any questions. - All laboratory values were reviewed and interpreted personally by myself, the ER physician - All imaging was reviewed and interpreted personally by myself, the ER physician. - Evaluation and treatment of this problem were appropriate in the emergency setting Critical care -I spent a total of >95 minutes of critical care time managing the patient, independent of any other practitioner. -The time involved in the performance of separately reportable procedures was not counted towards critical care time. Lab Data 07/13/24 08:37 07/13/24 06:20 Radiology Impressions Chest X-Ray 07/13/24 06:15 IMPRESSION: 1. Moderate cardiomegaly. 2. No definite CHF/pulmonary edema. 3. Other findings discussed above. Chest/Abdomen/Pelvis CT 07/13/24 07:06 IMPRESSION: No acute findings. IMPRESSION: 1. Moderate volume hemoperitoneum. Focal nonspecific layering hyperdensity within the central left hemiabdomen with surrounding hemoperitoneum and fat stranding, may represent location of extravasation. Density, however, is higher than blood pool, so this may represent a calcification rather than the location of extravasation. Consider GI bleed protocol CT with and without contrast or conventional angiogram if there is high clinical suspicion for acute extravasation. 2. Wall thickening and hyperemia of the rectum and sigmoid colon, suspicious for proctocolitis. 3. Scattered ill-defined heterogeneous splenic hypodensities, indeterminate. 4. Diffuse bladder wall thickening, which is suggestive of cystitis in the appropriate clinical setting. COMMENTS: Consistent with the [employer]'s Incidental Findings Committee white paper (J Am Mani Radiol 2018): Any incidental renal lesion less than 1 cm or classified as too small to characterize, or any incidental cystic renal lesion characterized as simple-appearing, is likely benign. No follow-up imaging is recommended for these lesions per consensus recommendations based on imaging criteria. ADDENDUM: 07/13/24 0832 COMMENT: THIS REPORT CONTAINS FINDINGS THAT MAY BE CRITICAL TO PATIENT CARE. The exam findings were verbally communicated by me to STONEY MORA via telephone conference at 8:27 AM CDT on 07/13/2024. The findings were acknowledged and understood. Laboratory Results WBC 13.41 10^3/uL (3.29-11.43) H 07/13/24 08:37 RBC 2.11 10^6/uL (3.85-5.65) L 07/13/24 08:37 Hgb 4.80 g/dL (11.27-16.99) L* D 07/13/24 08:37 Hgb Cancelled 07/13/24 08:37 Hct 16.7 % (37-53) L* D 07/13/24 08:37 MCV 79.1 fl (82-101) L D 07/13/24 08:37 MCH 22.7 pg (27-33) L 07/13/24 08:37 MCHC 28.7 g/dL (30-55) L 07/13/24 08:37 RDW 28.1 % (12.1-15.1) H 07/13/24 08:37 Plt Count 119 10^3/cmm (157-399) L D 07/13/24 08:37 MPV 10.6 fL (7.4-10.4) H 07/13/24 08:37 Neut % (Auto) 82.0 % 07/13/24 08:37 Lymph % (Auto) 9.9 % 07/13/24 08:37 Crawford % (Auto) 6.9 % 07/13/24 08:37 Eos % (Auto) 0.4 % 07/13/24 08:37 Baso % (Auto) 0.1 % 07/13/24 08:37 Neut # (Auto) 10.98 10^3/uL (1.8-7.7) H 07/13/24 08:37 Lymph # (Auto) 1.3 10^3/uL (0.8-4.8) 07/13/24 08:37 Crawford # (Auto) 0.9 10^3/uL (0.2-0.9) 07/13/24 08:37 Eos # (Auto) 0.1 10^3/uL (0.0-0.8) 07/13/24 08:37 Baso # (Auto) 0.0 10^3/uL (0.0-0.1) 07/13/24 08:37 Nucleated RBC % (auto) 0 % 07/13/24 08:37 Nucleated RBCs # 0.0 /100WBC 07/13/24 08:37 PT 27.80 SECONDS (12.1-14.9) H 07/13/24 08:37 INR 2.42 (0.8-1.2) H 07/13/24 08:37 APTT 42.8 SECONDS (23.9-36.7) H 07/13/24 08:37 Sodium 138 mmol/L (136-145) 07/13/24 06:20 Potassium 3.6 mmol/L (3.5-5.1) 07/13/24 06:20 Chloride 101 mmol/L (98-107) 07/13/24 06:20 Carbon Dioxide 23 mmol/L (22-29) 07/13/24 06:20 Anion Gap 17.6 (5-19) 07/13/24 06:20 BUN 16 mg/dL (8-23) 07/13/24 06:20 Creatinine 1.2 mg/dL (0.7-1.2) 07/13/24 06:20 GFR Calculation 59.9 mL/min (90-130) L 07/13/24 06:20 Glucose 222 mg/dL (65-115) H 07/13/24 06:20 POC Glucose 210 mg/dL (70-110) H 07/13/24 06:22 Calculated Osmolality 294 mOsm/kg (285-295) 07/13/24 06:20 Lactic Acid 5.0 mmol/L (0.5-2.2) H* 07/13/24 06:20 Calcium 8.5 mg/dL (8.5-10.5) 07/13/24 06:20 Total Bilirubin 0.8 mg/dL (0.15-1.2) 07/13/24 06:20 AST 41 U/L (0-40) H 07/13/24 06:20 ALT 52 U/L (0-41) H 07/13/24 06:20 Alkaline Phosphatase 155 U/L (40-130) H 07/13/24 06:20 Troponin T Baseline 33 ng/L (0-15) H 07/13/24 06:20 Troponin T 120 Minute 31.15 ng/L (0-15) H 07/13/24 08:14 Delta Troponin T -1.85 ABS# (0-10) L 07/13/24 08:14 C-Reactive Protein 3.0 mg/L (0.0-4.9) 07/13/24 06:20 NT-Pro-B Natriuret Pep 1918 pg/mL (0-125) H 07/13/24 06:20 Total Protein 5.8 g/dL (6.6-8.7) L 07/13/24 06:20 Albumin 3.5 g/dL (3.5-5.2) 07/13/24 06:20 Globulin 2.3 g/dL (1.3-4.6) 07/13/24 06:20 Lipase 34 U/L (13-60) 07/13/24 06:20 Amorphous Sediment Not Reportable 07/13/24 08:47 Influenza A (PCR) Negative (Negative) 07/13/24 06:20 Influenza Type B (PCR) Negative (Negative) 07/13/24 06:20 RSV (PCR) Negative (Negative) 07/13/24 06:20 SARS-CoV-2 (PCR) Negative (Negative) 07/13/24 06:20 Blood Type A Positive 07/13/24 06:20 Rho(D) Type Rh positive 07/13/24 06:20 Antibody Screen Negative 07/13/24 06:20 Crossmatch See Detail 07/13/24 06:20 All radiology interpretation(s) finalized by discharge Discharge Plan Discharge Patient Disposition: Xfer Short-Term Hosp Clinical Impression: Intraperitoneal hemorrhage, Acute blood loss anemia, Acute hypotension, Shock circulatory Condition: Stable Referrals: Silvestre Morrissey MD [Primary Care Provider, [facility]] Print Language: Indonesian Coding Level of Care Code ED [employer] Operator for Michelle Rivera
[2024-07-13 06:28] LABS: Glucose Point of Care 210 mg/dL (70-110)
[2024-07-13] MEDS: meropenem 500 mg SDV IVP (06:33)
[2024-07-13] MEDS: linezolid premix 600 MG/300 ML PREMIX 300 MG IV (06:34)
--- NOTE | 2024-07-13 06:41 | PC.NURSE ---
Pt refused straight cath for urine.
[2024-07-13 06:45] LABS: Basophils # 0.1 10^3/uL (0.0-0.1); Basophils % 0.5 %; Eosinophils # 0.5 10^3/uL (0.0-0.8); Eosinophils % 5.2 %; Hematocrit 35.9 % (37-53); Lymphocytes # 1.8 10^3/uL (0.8-4.8); Lymphocytes % 19.4 %; Mean Corpuscular HGB Conc 29.8 g/dL (30-55); Mean Corpuscular Hemoglobin 22.2 pg (27-33); Mean Corpuscular Volume 74.6 fl (82-101); Mean Platelet Volume 10.2 fL (7.4-10.4); Monocytes # 0.5 10^3/uL (0.2-0.9); Monocytes % 5.7 %; Neutrophils # 6.36 10^3/uL (1.8-7.7); Neutrophils % 68.8 %; Nucleated Red Blood Cells % 0 %; Platelet Count 210 10^3/cmm (157-399); Red Blood Count 4.81 10^6/uL (3.85-5.65); Red Cell Distribution Width 27.9 % (12.1-15.1); White Blood Count 9.26 10^3/uL (3.29-11.43)
[2024-07-13] MEDS: ondansetron hcl ODT 4 mg Tab PO (06:56)
[2024-07-13 07:02] LABS: Troponin(5th) Baseline 33 ng/L (0-15)
[2024-07-13 07:03] LABS: Alanine Aminotransferase 52 U/L (0-41); Albumin Level 3.5 g/dL (3.5-5.2); Alkaline Phosphatase 155 U/L (40-130); Anion Gap 17.6 (5-19); Aspartate Amino Transferase 41 U/L (0-40); Blood Urea Nitrogen 16 mg/dL (8-23); Calcium 8.5 mg/dL (8.5-10.5); Carbon Dioxide 23 mmol/L (22-29); Chloride 101 mmol/L (98-107); Creatinine Clr Calc Pharmacy 69.7676; Globulin 2.3 g/dL (1.3-4.6); Glomerular Filtration Rate 59.9 mL/min (90-130); Glucose 222 mg/dL (65-115); Lipase 34 U/L (13-60); Osmolality Calculated 294 mOsm/kg (285-295); Potassium 3.6 mmol/L (3.5-5.1); Sodium 138 mmol/L (136-145); Total Bilirubin 0.8 mg/dL (0.15-1.2); Total Protein 5.8 g/dL (6.6-8.7)
--- NOTE | 2024-07-13 07:06 | CTR_ITS ---
PROCEDURE INFORMATION: Exam: CT Chest With Contrast; Diagnostic Exam date and time: 07/13/2024 7:32 AM Age: 68 years old Clinical indication: Other: Weakness; Shortness of breath; Prior surgery; Surgery date: 6+ months; Surgery type: Stents; Additional info: Sepsis TECHNIQUE: Imaging protocol: Diagnostic computed tomography of the chest with contrast. Radiation optimization: All CT scans at this facility use at least one of these dose optimization techniques: automated exposure control; mA and/or kV adjustment per patient size (includes targeted exams where dose is matched to clinical indication); or iterative reconstruction. Contrast material: OMNI 350; Contrast volume: 100 ml; Contrast route: INTRAVENOUS (IV); COMPARISON: CR (CHEST, ) 07/13/2024 6:33 AM RADIATION DOSE METRICS: Total DLP (mGy-cm): 1465.89 FINDINGS: Thyroid: The visualized thyroid gland is unremarkable. Trachea: The central airways are patent. Lungs: Bibasilar atelectasis. No focal consolidation. Punctate calcified granuloma in the left upper lobe. Pleural spaces: No significant pleural effusion. No pneumothorax. Heart: There is moderate mitral annular calcification. Left atrial enlargement. Trace pericardial fluid. Coronary arteries: LAD stents and scattered coronary artery calcifications. Lymph nodes: No enlarged lymph nodes by size criteria. Vasculature: Four-vessel aortic arch configuration, with the left vertebral artery arising from the aortic arch, a normal anatomical variant. The aorta demonstrates mild atherosclerotic calcification. Bones/joints: The spine demonstrates mild degenerative changes at multiple levels. Soft tissues: Bilateral gynecomastia. PROCEDURE INFORMATION: Exam: CT Abdomen And Pelvis With Contrast Exam date and time: 07/13/2024 7:32 AM Age: 68 years old Clinical indication: Other: Weakness; Shortness of breath; Prior surgery; Surgery date: 6+ months; Surgery type: Stents; Additional info: Sepsis TECHNIQUE: Imaging protocol: Computed tomography of the abdomen and pelvis with contrast. Radiation optimization: All CT scans at this facility use at least one of these dose optimization techniques: automated exposure control; mA and/or kV adjustment per patient size (includes targeted exams where dose is matched to clinical indication); or iterative reconstruction. Contrast material: OMNI 350; Contrast volume: 100 ml; Contrast route: INTRAVENOUS (IV); COMPARISON: [place] [id number] 06/05/2024 7:26 PM RADIATION DOSE METRICS: Total DLP (mGy-cm): 1465.89 FINDINGS: Liver: Normal. No mass. Gallbladder and biliary ducts: There has been a cholecystectomy. No biliary ductal dilatation. Pancreas: The pancreas is unremarkable. Spleen: Scattered ill-defined heterogeneous splenic hypodensities, indeterminate. Adrenal glands: The adrenal glands are unremarkable. Kidneys and ureters: Bilateral simple renal cysts are present, as well as other subcentimeter hypodensities which are too small to characterize. Stomach and bowel: There has been a gastric bypass surgical procedure. Colonic diverticulosis without evidence of diverticulitis. Mild wall thickening and hyperemia of the rectum and sigmoid colon. Appendix: A normal appendix is identified. Intraperitoneal space: Moderate volume hemoperitoneum pooling within the abdomen/pelvis. There is a focal nonspecific layering hyperdensity within the central left hemiabdomen (see for example series 6, image 54 and series 11, image 42) with surrounding hemoperitoneum and fat stranding, which may represent location of extravasation. Density however is higher than blood pool, so this may represent a calcification rather than extravasation. Vasculature: The vasculature demonstrates diffuse moderate atherosclerotic calcification. No aneurysm. Lymph nodes: No enlarged lymph nodes by size criteria. Urinary bladder: There is diffuse bladder wall thickening. Reproductive: Prostate brachytherapy seeds in place. Bones/joints: The spine demonstrates mild degenerative changes at multiple levels. Soft tissues: [id number] sized supraumbilical and umbilical hernias containing fat and hemorrhagic ascites. CT/CT chest abdpel w/*[id number] IMPRESSION: No acute findings. IMPRESSION: 1. Moderate volume hemoperitoneum. Focal nonspecific layering hyperdensity within the central left hemiabdomen with surrounding hemoperitoneum and fat stranding, may represent location of extravasation. Density, however, is higher than blood pool, so this may represent a calcification rather than the location of extravasation. Consider GI bleed protocol CT with and without contrast or conventional angiogram if there is high clinical suspicion for acute extravasation. 2. Wall thickening and hyperemia of the rectum and sigmoid colon, suspicious for proctocolitis. 3. Scattered ill-defined heterogeneous splenic hypodensities, indeterminate. 4. Diffuse bladder wall thickening, which is suggestive of cystitis in the appropriate clinical setting. COMMENTS: Consistent with the [employer]'s Incidental Findings Committee white paper (J Am Mani Radiol 2018): Any incidental renal lesion less than 1 cm or classified as too small to characterize, or any incidental cystic renal lesion characterized as simple-appearing, is likely benign. No follow-up imaging is recommended for these lesions per consensus recommendations based on imaging criteria.
[2024-07-13] MEDS: norepinephrine 4 MG/250 ML BAG 30 MG IV (07:07)
[2024-07-13 07:09] LABS: NT Pro B Type Natriuretic Pept 1918 pg/mL (0-125)
[2024-07-13 07:19] LABS: Influenza A NEGATIVE (Negative); Influenza B NEGATIVE (Negative); Respiratory Syncytial Virus Ce NEGATIVE (Negative); SARS-CoV-2 PCR NEGATIVE (Negative)
[2024-07-13] MEDS: EPINEPHrine 0.1 mg/mL SYR 10 mL 0.5 MG IVP ×2 (07:20→08:31)
[2024-07-13 07:30] LABS: Reflex Lactate Order REFLEX LACTIC ORDERD
[2024-07-13] MEDS: iohexol 350 mg/mL 500 mL Btl (per mL) IV (07:43)
[2024-07-13 08:36] LABS: Troponin 5 2HR 31.15 ng/L (0-15)
[2024-07-13 08:44] LABS: Basophils % 0.1 %; Eosinophils # 0.1 10^3/uL (0.0-0.8); Eosinophils % 0.4 %; Lymphocytes # 1.3 10^3/uL (0.8-4.8); Lymphocytes % 9.9 %; Mean Corpuscular HGB Conc 28.7 g/dL (30-55); Mean Corpuscular Hemoglobin 22.7 pg (27-33); Mean Corpuscular Volume 79.1 fl (82-101); Mean Platelet Volume 10.6 fL (7.4-10.4); Monocytes # 0.9 10^3/uL (0.2-0.9); Monocytes % 6.9 %; Neutrophils # 10.98 10^3/uL (1.8-7.7); Nucleated Red Blood Cells % 0 %; Platelet Count 119 10^3/cmm (157-399); Red Blood Count 2.11 10^6/uL (3.85-5.65); Red Cell Distribution Width 28.1 % (12.1-15.1); White Blood Count 13.41 10^3/uL (3.29-11.43)
[2024-07-13 08:54] LABS: INR 2.42 (0.8-1.2)
[2024-07-13 08:55] LABS: Partial Thromboplastin Time 42.8 SECONDS (23.9-36.7)
[2024-07-13 08:56] LABS: Troponin 5 2HR Delta -1.85 ABS# (0-10)
--- NOTE | 2024-07-13 09:07 | PC.NURSE ---
MULTIPLE NURSES AND PHYSICIAN AT BEDSIDE CARING FOR PATIENT. CLOTHING REMOVED AND CUT FROM PATIENT. PATIENT PLACED ON O2 DUE TO DECREASING RESPIRATORY DRIVE. PATIENT BM CLEANED, MUCUS AND BLOOD STREAKED STOOL. HARRINGTON ALSO PLACED AT THAT TIME. PATIENT CONTINUES TO COMPLAIN ABOUT BACK PAIN.
--- NOTE | 2024-07-13 09:12 | PC.NURSE ---
2 UNITS OF EMERGENT BLOOD INITIATED AT [address] MORA.
[2024-07-13 09:17] LABS: Hematocrit 16.7 % (37-53)
[2024-07-13] MEDS: factor xa, inactivated-zhzo 800 MG in empty flexible container 1 EACH, non-DEHP filter ... 180 MG IV (09:35)
[2024-07-13 09:49] LABS: Bilirubin Urine Negative (Negative); Blood Urine 1+ (Negative); Glucose Urine UA Negative (Normal); Hyaline Casts Urine 12.81 /lpf; Ketones Urine Trace (Negative); Leukocyte Esterase Urine Negative (Negative); Nitrate Urine Negative (Negative); Protein Urine 3+ (Negative); RBC Urine 21-50 /hpf (0-2); Squamous Epithelial Cell Urine 0-5 /hpf (0-5); Urine Appearance Clear (CLEAR); Urine Color Dark Yellow (Yellow); WBC Urine 0-5 /hpf (0-5)
[2024-07-13 10:03] LABS: Bacteria Urine 1+ /hpf; Specific Gravity, Urine 1.038 (1.005-1.030); UA Slide Review UA Slide Review Perf
[2024-07-13 10:04] LABS: Add Urine Culture? Yes; Coarse Granular Casts Urine 0-4 /lpf
--- NOTE | 2024-07-13 10:15 | PC.NURSE ---
alerted this nurse that something was wrong with pt. when this RN went into the room pt was not responding. provider notified, when provider entered the room pts pulse was weak and thready. Dr. Flores verbally ordered 0.5 of epi and for levo to be titrated to 20mcg. pt then became more responsive. this nurse took another pt to ICU and when I returned, i was notified that pt went unresponsive again. RNs that were on the floor were attempting to stabilize pt. pt was moved to room 10. pt received 4 units of blood emergently and FFP was given to [facility] to administer in the air on the way to accepting facility.
== END 2024-07-13 10:00 | disposition short-term general hospital (02) ==
PROVIDERS: Emergency Provider Emergency Medicine; PCP Family Medicine
DX: K66.1 Hemoperitoneum (principal); D62 Acute posthemorrhagic anemia; I95.9 Hypotension, unspecified; R57.0 Cardiogenic shock; Z11.52 Encounter for screening for COVID-19; I25.10 Atherosclerotic heart disease of native coronary artery without angina pectoris; I10 Essential (primary) hypertension; Z79.01 Long term (current) use of anticoagulants
CPT/HCPCS: 36415; 36416; 71045; 71260; 74177; 80053; 81001; 82962; 83605; 83690; 83880; 84484; 85025; 85610; 85730; 86140; 86850; 86900; 86920; 86927; 87040; 87086; 87637; 93005; 96361; 96365; 96367; 96375; 99291; 99292; J0171; J2020; J2185; J7030; J7169; J9999; P9016; P9017; Q0162

== ENCOUNTER → 2024-07-20 09:22 | Outpatient (BNVA) | payer MEDICARE, OTHER, SELFPAY | PROVIDERS: PCP Family Medicine; Visit Provider Nurse Practitioner Family | DX: I50.9 Heart failure, unspecified (principal); Z86.79 Personal history of other diseases of the circulatory system; R57.9 Shock, unspecified; I95.9 Hypotension, unspecified; K66.1 Hemoperitoneum; D62 Acute posthemorrhagic anemia | CPT/HCPCS: 99213 ==

== ENCOUNTER → 2024-08-23 08:07 | Outpatient (BNVA) | payer MEDICARE, OTHER, SELFPAY | PROVIDERS: PCP Family Medicine; Visit Provider Podiatrist Foot & Ankle Surgery | DX: L60.0 Ingrowing nail (principal) | CPT/HCPCS: 11750; 99203; J9999 ==

== ENCOUNTER → 2024-09-10 11:11 | Outpatient (BNVA) | payer MEDICARE, OTHER, SELFPAY | PROVIDERS: PCP Family Medicine; Visit Provider Podiatrist Foot & Ankle Surgery | DX: L03.031 Cellulitis of right toe (principal) | CPT/HCPCS: 99214 ==

== ENCOUNTER → 2024-09-24 12:39 | Outpatient (BNVA) | payer MEDICARE, OTHER, SELFPAY | PROVIDERS: Family Provider Family Medicine; PCP Family Medicine; Visit Provider Podiatrist Foot & Ankle Surgery | DX: L60.8 Other nail disorders (principal); L03.031 Cellulitis of right toe | CPT/HCPCS: 99213 ==

== ENCOUNTER → 2024-09-25 15:58 | Outpatient (BNVA) | payer MEDICARE, OTHER, SELFPAY | PROVIDERS: Family Provider Family Medicine; PCP Family Medicine; Visit Provider Internal Medicine Cardiovascular Disease | DX: I48.91 Unspecified atrial fibrillation (principal); I50.22 Chronic systolic (congestive) heart failure; Z87.898 Personal history of other specified conditions; Z79.01 Long term (current) use of anticoagulants | CPT/HCPCS: 99214 ==

== ENCOUNTER → 2024-09-27 08:56 | Outpatient (BNVA) | payer MEDICARE, OTHER, SELFPAY | PROVIDERS: Family Provider Family Medicine; PCP Family Medicine; Visit Provider Family Medicine | DX: I25.10 Atherosclerotic heart disease of native coronary artery without angina pectoris (principal); E11.9 Type 2 diabetes mellitus without complications; R79.89 Other specified abnormal findings of blood chemistry; Z12.5 Encounter for screening for malignant neoplasm of prostate; R35.1 Nocturia | CPT/HCPCS: 80053; 80061; 82043; 82728; 83036; 83550; 84403; 85025; G0103 ==

== ENCOUNTER 2024-10-01 10:55 | Outpatient (CLI) | payer MEDICARE, OTHER, SELFPAY ==
--- NOTE | 2024-10-01 11:15 | USCV_ITS ---
Kamron Cook Age: 69 Gender: M : 1955 Exam Date: 10/01/2024 11:21 Ordering Phys: Vy Enriquez NP Technologist: Exam Location: [facility] [place]: cardiomyopathy BP: 136 / 86 HR: Rhythm: Sinus Technical Quality: Adequate MEASUREMENTS (Male / Female) Normal Values 2D ECHO LV Diastolic Diameter PLAX 4.6 cm 4.2 - 5.9 / 3.9 - 5.3 cm IVS Diastolic Thickness 1.5 cm 0.6 - 1.0 / 0.6 - 0.9 cm IVS Systolic Thickness 1.7 cm LVPW Diastolic Thickness 1.4 cm 0.6 - 1.0 / 0.6 - 0.9 cm LVPW Systolic Thickness 1.5 cm LVOT Diameter 2.3 cm LV Ejection Fraction 2D Teich 45.6 % LV Ejection Fraction MOD 4C 59.2 % LV Ejection Fraction MOD 2C 68.2 % LV Ejection Fraction 2C AL 68.9 % LA Diameter 4.4 cm RA Systolic Volume 4C AL 42.7 ml RA Systolic Volume 4C MOD 41.7 ml M-MODE LA Ao Ratio MM 1.1 AV Cusp Separation MM 2.6 cm FINDINGS Left Ventricle Normal left ventricular cavity size. Normal left ventricular systolic function, EF 59%. Moderate concentric left ventricular hypertrophy. Unable to assess left ventricular diastolic function due to severe mitral annular calcification. Right Ventricle Normal right ventricular size and function Right Atrium Normal right atrial size Left Atrium Mild left atrial enlargement Mitral Valve Severe mitral annular calcification. Mild mitral regurgitation. No mitral stenosis Aortic Valve Mild aortic valve regurgitation Tricuspid Valve Pulmonic Valve Pericardium Aorta IVC CONCLUSIONS 1. Study ordered as a limited echocardiogram 2. Normal left ventricular systolic function, EF 59% 3. Mild mitral valve regurgitation and mild aortic valve regurgitation 4. Severe mitral annular calcification without stenosis. 5. Moderate concentric left ventricular hypertrophy Rad Raman MD, FACC (Electronically Signed) Final Date: 02 October 2024 18:02 S
== END 2024-10-01 10:56 | disposition home or self-care (01) ==
LOC: RAD 10:55
PROVIDERS: PCP Family Medicine; Visit Provider Nurse Practitioner Family
DX: I08.0 Rheumatic disorders of both mitral and aortic valves (principal); I50.9 Heart failure, unspecified
CPT/HCPCS: 93308

== ENCOUNTER 2024-11-26 13:28 | Outpatient (CLI) | payer MEDICARE, OTHER, SELFPAY ==
--- NOTE | 2024-11-26 13:33 | XRR_ITS ---
PROCEDURE INFORMATION: Exam: XR Left Hand Exam date and time: 11/26/2024 1:46 PM Age: 69 years old Clinical indication: Mass or lump; Fingers; Left; Lt hand pain lump, noticed 1 month ago, at base of thumb index finger area; Additional info: Left thumb deformity TECHNIQUE: Imaging protocol: Radiologic exam of the left hand. Views: 3 or more views. COMPARISON: No relevant prior studies available. FINDINGS: Bones/joints: Severely advanced arthritic changes are present at the 1st carpometacarpal joint. There is partial collapse, sclerosis and bony spurring along the distal articular surface of the trapezium. There is significant bony spurring and osteophyte formation of the base of the 1st metacarpal. First metacarpal is subluxed laterally with relation to the trapezium. No acute fracture. Distal aspect of the radius and ulna are intact. Very mild negative ulnar variance. Lateral view demonstrates volar tilt of the lunate which can be seen in the setting of volar intercalated segmental instability. There may potentially be widening of the scapholunate interval which is not well assessed. Ibob-ai-pijflfev arthritic change at the articulation of the scaphoid with the trapezium and trapezoid. Metacarpals are intact. Joint space narrowing and slight subluxation is present at the 1st, 2nd and 3rd metacarpophalangeal joints. No dislocation. No fracture. Mild osteoarthritic changes are present throughout the remainder of the proximal and distal interphalangeal joints. Soft tissues: No opaque foreign body. No areas of asymmetric soft tissue swelling. XR/XR hand LT min 3V* [id number] IMPRESSION: 1. Severely advanced arthritic changes are present at the 1st carpometacarpal joint. There is severe joint space narrowing, sclerosis and bony spurring. Partial collapse of the trapezium with associated bony spurring. No acute fracture. Base of the 1st metacarpal is subluxed laterally. No true dislocation. 2. Volar tilt of the lunate on the lateral view can be seen in the setting of volar intercalated segmental instability. Additional joint space narrowing and slight subluxation is present at the 1st, 2nd and 3rd metacarpophalangeal joints. No bony erosion or destruction. No acute fracture.
== END 2024-11-26 13:29 | disposition home or self-care (01) ==
LOC: RAD 13:31
PROVIDERS: PCP Family Medicine; Visit Provider Family Medicine
DX: M20.092 Other deformity of left finger(s) (principal); M18.12 Unilateral primary osteoarthritis of first carpometacarpal joint, left hand; M25.742 Osteophyte, left hand; M24.832 Other specific joint derangements of left wrist, not elsewhere classified; S63.212A Subluxation of metacarpophalangeal joint of right middle finger, initial encounter; S63.213A Subluxation of metacarpophalangeal joint of left middle finger, initial encounter; S63.112A Subluxation of metacarpophalangeal joint of left thumb, initial encounter; X58.XXXA Exposure to other specified factors, initial encounter
CPT/HCPCS: 73130

== ENCOUNTER → 2024-12-07 10:55 | Outpatient (BNVA) | payer MEDICARE, OTHER, SELFPAY | PROVIDERS: PCP Family Medicine; Visit Provider Nurse Practitioner | DX: M18.12 Unilateral primary osteoarthritis of first carpometacarpal joint, left hand (principal); S63.062A Subluxation of metacarpal (bone), proximal end of left hand, initial encounter; M20.002 Unspecified deformity of left finger(s); X58.XXXA Exposure to other specified factors, initial encounter | CPT/HCPCS: 99204 ==

== ENCOUNTER → 2025-01-21 10:38 | Outpatient (BNVA) | payer MEDICARE, OTHER, SELFPAY | PROVIDERS: PCP Family Medicine; Visit Provider Family Medicine | DX: Z13.6 Encounter for screening for cardiovascular disorders (principal); D64.9 Anemia, unspecified; D50.9 Iron deficiency anemia, unspecified | CPT/HCPCS: 82728; 83550; 85025 ==